=== PATIENT | male | born 1960 | race Two or more races ===

== ENCOUNTER 2024-02-12 16:10 | Emergency (ER) | payer MEDICARE, SELFPAY ==
[2024-02-12 16:14] VITALS: BP 122/87
[2024-02-12 16:39] VITALS: BP 116/82
--- NOTE | 2024-02-12 16:49 | ED.GENMED ---
History of Present Illness
General
Chief Complaint: Heart Rate Problem
Source: patient
Exam Limitations: none
Time Seen by Provider: 02/12/24 16:48
Travel History
Have you had any contact with someone who has COVID-19?: No
Do you have any symptoms of coronavirus? Fever > 100 degrees, chills, cough, shortness of breath, sore throat, loss of taste or smell, muscle aches, or headache?: No
History of Present Illness
History of Present Illness:
63-year-old male woke 36 hours ago with some fluttering shortness of breath. Intermittent since then. Currently does not feel it. Just feels mildly fatigued. No chest pain no unusual leg pain no recent long trip. Patient has a history of atrial
fibrillation. History of valve replacement. He states he was recommended to be on blood thinners by his software release manager but patient has held off on this in the past. Follow [facility]. Paper Steamer had recommended a watchman at some
point.
Past History
Past History
ED Past Medical History: Arrthythmia and Valvular disease
ED Past Surgical History: Other (Fasciotomy)
Review of Systems
Review of Systems
All Other Systems: Not applicable
Cardiac: Denies chest pain or syncope
Phy Exam
Physical Exam
Physical Exam:
GENERAL: Alert and oriented in no apparent distress
EYE: Orbits normal.
NECK: Supple. No thyroid palpable
ENT: Pharynx without erythema
CARDIAC: Regular rhythm. Tachycardic. No obvious murmur
LUNGS: Clear breath sounds,normal
ABDOMEN: Soft, without focal tenderness or distention
NEUROLOGICAL: Alert and oriented , grossly non-focal
SKIN: Warm and dry, no rash or lesion, no discoloration, skin intact.
MUSCULOSKELETAL: Chronic edema and stockings of the lower extremities
PSYCH: Normal and appropriate interaction.
Scores
[id number] Score for Afib Stroke Risk
Age in Years (65=0, 65-74=1, >/=75=2): 65-74
Sex (Female=+1): Male
Congestive Heart Failure History (Yes=+1): No
Hypertension History (Yes=+1): No
Stroke/TIA/Thromboembolism History (Yes=+2): No
Vascular Disease History (Yes=+1): No
Diabetes Mellitus (Yes=+1): No
Score: 1
Anticoagulation Recommendations: Consider anticoagulation (as validated in nonvalvular fib)
Course
Orders/Labs/Results
Orders:
Orders
02/12/24 16:21
Electrocardiogram (*1) Urgent
Reason for Study: Palpitations
EKG- Treatment ONCE
02/12/24 16:44
Cardiac Monitoring- Treatment ONCE
IV Insert/Care/Rem.- Treatment PRN
02/12/24 16:47
Complete Blood Count/With Diff Urgent
Comprehensive Metabolic Panel Urgent
Troponin I Urgent
Abnormal Lab Results
02/12/24
16:47
RBC 3.76 L 10^6/uL
(4.70-6.10)
Hgb 11.9 L g/dL
(13.0-18.0)
Hct 37.3 L %
(39.0-52.0)
MCV 99.2 H fL
(80.0-94.0)
MCH 31.6 H pg
(27.0-31.0)
MCHC 31.9 L g/dL
(33.0-37.0)
Absolute Lymphs (auto) 0.8 L 10^3/uL
(1.2-3.4)
Neutrophils % 80.4 H %
(42.2-75.2)
Lymphocytes % 10.9 L %
(20.5-51.1)
Glucose 105 H mg/dl
(70-99)
Total Bilirubin 1.5 H mg/dl
(0.2-1.3)
Total Protein 6.2 L g/dl
(6.3-8.2)
02/12/24 16:47
02/12/24 16:47
Vital Signs
Initial and Last Documented VS:
Initial Vital Signs
Temp Pulse Resp BP Pulse Ox
99.3 F 124 16 122/87 96
02/12/24 16:14 02/12/24 16:14 02/12/24 16:14 02/12/24 16:14 02/12/24 16:14
Last Documented Vital Signs
Temp Pulse Resp BP Pulse Ox
99.3 F 121 31 111/82 95
02/12/24 16:14 02/12/24 18:00 02/12/24 18:00 02/12/24 18:00 02/12/24 18:00
MDM/Problems Addressed
Differential Diagnosis Includes:
Patient has 2 issues management meant of his atrial flutter and management of his stroke risk. As for his atrial flutter he currently does not feel any symptoms which makes me at least somewhat question when these episodes have started. I am not
comfortable with cardioversion given his lack of anticoagulation and uncertain symptoms. He will be rate controlled more and carefully and close follow-up with cardiology.
As for risk of stroke patient's [id number] is 1 however with his recurrent episodes and a probable need for cardioversion in the near future it would make most sense to have him on an anticoagulant. Patient does have history of some nosebleeds
and 1 history of GI bleed in the past. He has no current bleeding issues. Apparently his software release manager had wanted him on thinners he did not want them and had recommended a Watchman procedure. Patient does not pursue that at this time. Discussed
with our software release manager who is in agreement with rate control anticoagulation and close follow-up. Patient is aware of the risk of anticoagulation
*Pulse Oximetry
Patient hypoxic: no
*EKG
Interpreted by ED Provider?: Yes
Interpretation: abnormal
Comparison EKG: no comparison EKG present
Heart Rate: 123
Rate: tachycardiac
Rhythm: atrial flutter
[place]: left axis deviation
Interval: normal interval
QRS Pattern: normal QRS
Ischemia: non-specific ST changes
*Critical Care Note
Total Time (30-74mins, 75-104mins- exclusive of procedures): Not Applicable
Update Note
Update Note:
Patient did not want us to give the meds here .discussed with cardiology. Will up the beta-augustina mildly. Patient was given a coupon for the Eliquis he does not want to start it here. And will follow-up. No respiratory distress no CHF. Stable
blood pressure.
ED Attending Note
-
Portions of this chart may have been created with voice recognition software.� Occasional wrong word or��sound alike� substitutions may have occurred due to the inherent limitations of voice recognition software.
Discharge Plan
Departure
Patient Disposition: Home (Routine Discharge)
Date of Disposition: 02/12/24
Time of Disposition: 18:00
Patient with high blood pressure during this ER visit?: Yes
Discharge Problem:
Atrial flutter
Instructions: Atrial Flutter (DC), Managing increased bleeding risk, Chest Pain CBC Follow Up, BLOOD PRESSURE
Prescriptions:
New
Eliquis 5 mg tablet
5 mg PO BID Qty: 60 0RF
Referrals:
Carmelo Shepherd MD [Family Provider] - Follow up in 2-3 days
Arvin Raya MD [Active] -
Activity Restrictions/Additional Instructions:
Take an extra half tablet of your metoprolol daily.
We recommend starting the Eliquis. The risk benefit was explained
The cardiology group should call you tomorrow for close follow-up
Interventions
Interventions:
*Risk Screen - Suicide Last Done: 02/12/24 17:46
*General Assessment Last Done: 02/12/24 18:14
*Neglect/Abuse Screening Last Done: 02/12/24 17:46
ED- Fall Risk Assessment Last Done: 02/12/24 18:14
*ED COVID-19 Vaccine History Last Done: 02/12/24 18:14
*Nursing Disposition Last Done: 02/12/24 18:14
ED- Cardiac Assessment Last Done: 02/12/24 17:45
ED- Pulmonary Assessment Last Done: 02/12/24 17:45
Discharge Date and Time
Discharge Date/Time: 02/12/24 18:14
Print Language: HEBREW
[2024-02-12 16:54] LABS: % Basophils 0.1 % (0-2); % Eosinophils 1.9 % (0-6); % Immature Granulocytes 0.3 % (0-0.5); % Lymphocytes 10.9 % (20.5-51.1); % Monocytes 6.4 % (1.7-9.3); % Neutrophils 80.4 % (42.2-75.2); Absolute Eosinophils 0.1 10^3/uL (0-0.7); Absolute Lymphocytes 0.8 10^3/uL (1.2-3.4); Absolute Monocytes 0.4 10^3/uL (0.1-0.6); Absolute Neutrophils 5.6 10^3/uL (1.4-6.5); Hematocrit 37.3 % (39.0-52.0); Hemoglobin 11.9 g/dL (13.0-18.0); Mean Corp Hgb Conc. 31.9 g/dL (33.0-37.0); Mean Corpuscular Hgb 31.6 pg (27.0-31.0); Mean Corpuscular Volume 99.2 fL (80.0-94.0); Mean Platelet Volume 9.2 fL (7.4-10.4); Nucleated Red Blood Cells % 0 % (-); Platelet Count 147 10^3/uL (130-400); Red Blood Cell Count 3.76 10^6/uL (4.70-6.10); Red Cell Dist. Width 13.3 % (11.5-14.5); White Blood Cell Count 6.9 10^3/uL (4.8-10.8)
[2024-02-12 17:00] VITALS: BP 122/84
[2024-02-12 17:14] LABS: ALT (SGPT) 17 U/L (0-50); AST (SGOT) 23 U/L (17-59); Albumin 4.2 g/dl (3.5-5.0); Alkaline Phosphatase 60 U/L (38-126); Blood Urea Nitrogen 20 mg/dl (9-20); Calcium 9.5 mg/dl (8.4-10.2); Carbon Dioxide 27 mmol/L (22-30); Chloride 107 mmol/L (98-107); Glucose 105 mg/dl (70-99); Potassium 3.9 mmol/L (3.5-5.1); Sodium 143 mmol/L (135-145); Total Bilirubin 1.5 mg/dl (0.2-1.3); Total Protein 6.2 g/dl (6.3-8.2); eGFR > 60.00
[2024-02-12 17:20] LABS: Troponin I < 0.012 ng/ml
[2024-02-12 18:00] VITALS: BP 111/82
== END 2024-02-12 18:14 | disposition home or self-care (01) ==
LOC: EMR 16:10
PROVIDERS: Student in an Organized Health Care Education/Training Program; EMERGENCY PHYSICIAN Emergency Medicine; FAMILY PHYSICIAN Internal Medicine
DX: I48.92 Unspecified atrial flutter (principal); R06.02 Shortness of breath; R53.83 Other fatigue; R03.0 Elevated blood-pressure reading, without diagnosis of hypertension; I48.91 Unspecified atrial fibrillation; I38 Endocarditis, valve unspecified; Z95.2 Presence of prosthetic heart valve; Z91.040 Latex allergy status; Z91.048 Other nonmedicinal substance allergy status
CPT/HCPCS: 99283; 80053; 84484; 85025; 93005

== ENCOUNTER → 2024-03-02 07:18 | Day surgery (SDC) | payer MEDICARE, SELFPAY ==
[2024-03-02 07:40] VITALS: BMI 29.0
--- NOTE | 2024-03-02 18:23 | ITS.CL.CARDI ---
Construction Assistant - Cardioversion
Cardioversion
Procedure Report:
Date of Procedure: 03/02/24
Procedure: INNA, evaluation for Watchman and JOSE. DC Cardioversion
Indication: Symptomatic atrial flutter
Performing Physician: Liliane Chaves DO [facility]
INNA 03/02/24:
Normal left ventricular chamber size with moderately reduced left ventricular systolic function.
Left ventricular ejection fraction visually estimated 35%
Normal right ventricular size with mildly reduced right ventricular systolic function
Severely dilated left atrium
Moderately dilated right atrium
Left atrial appendage windsock morphology. No spontaneous echo contrast seen in the left atrial appendage. No left atrial appendage thrombus. Peak velocities within the left atrial appendage are reduced. JOSE diameters: 0: Ostial diameter 3.13 cm,
depth 5.4 cm. 45: Ostial diameter 2.9 cm, depth 4.5 cm. 90: Ostial diameter 2 cm, depth 4.1 cm. 135: Ostial diameter 2.6 cm, depth 5.6 cm
There is a bioprosthetic valve present in the mitral position. Valve appears well-seated. Averaged mean transmitral gradient 5mmHg. Trace central mitral regurgitation. No paravalvular regurgitation.
[place], sclerotic aortic valve with trace, central aortic regurgitation
There is Annuloplasty ring present in the tricuspid position. No tricuspid stenosis. Mean gradient 2 mmHg. Mild tricuspid regurgitation.
Estimated pulmonary artery pressure of 23-26 mmHg assuming a right atrial pressure of 5 to 8 mmHg
Trace pulmonic regurgitation.
Mildly dilated aortic root and proximal ascending aorta: Sinus of Valsalva 3.45 cm, sinotubular junction 3.8 cm. Proximal ascending aorta 4.38 cm. Descending aorta 3 cm. Mild plaque was present in the descending aorta. No aortic dissection.
History of PFO closure; interatrial septum appears intact by color-flow Doppler.
Okay to proceed with planned cardioversion.
Anticoagulation: Eliquis
Technique: The patient was brought to the holding area. Signed informed consent was obtained. A time out was called and performed. The patient was anesthetized by the anesthesia service. Transesophageal echocardiogram performed without difficulty.
No immediate complications. No left atrial appendage thrombus. R2 pads were placed anteriorly and posteriorly. A 150J J synchronized biphasic shock restored normal sinus rhythm without significant bradycardia. There were no complications.
Post procedure EKG: Sinus rhythm with first-degree AV block and occasional PVCs. Left axis deviation. Possible lateral infarct. T wave abnormality, consider anterior ischemia.
Conclusion: Uncomplicated cardioversion from atrial flutter to sinus rhythm. Family and referring physician updated following procedure
Recommendation: Routine post cardioversion care. Continue watermaster anticoagulation. Follow-up planned with Dr. Wallace, [facility] cardiology
== END ==
LOC: CATH 07:18
PROVIDERS: ATTENDING PHYSICIAN Internal Medicine Cardiovascular Disease; FAMILY PHYSICIAN Internal Medicine; OTHER PHYSICIAN Internal Medicine Cardiovascular Disease
DX: I48.92 Unspecified atrial flutter (principal); I08.3 Combined rheumatic disorders of mitral, aortic and tricuspid valves; R06.02 Shortness of breath; I42.8 Other cardiomyopathies; Z79.01 Long term (current) use of anticoagulants
CPT/HCPCS: 93312; 93320; 93325; 92960; 93005

== ENCOUNTER → 2024-05-02 11:11 | Outpatient (REF) | payer MEDICARE, SELFPAY | LOC: HWRAD 11:11 | PROVIDERS: ATTENDING PHYSICIAN Internal Medicine Gastroenterology; FAMILY PHYSICIAN Internal Medicine; OTHER PHYSICIAN Internal Medicine Cardiovascular Disease; OTHER PHYSICIAN Internal Medicine Hematology & Oncology; REFERRING PHYSICIAN Internal Medicine Cardiovascular Disease | DX: R10.33 Periumbilical pain (principal) | CPT/HCPCS: 74177; Q9967 ==

== ENCOUNTER 2024-05-16 11:06 | Emergency (ER) | payer MEDICARE, SELFPAY ==
[2024-05-16 11:12] VITALS: BP 106/71
--- NOTE | 2024-05-16 13:16 | ED.GENMED ---
History of Present Illness
<Kathryn Lu PA-C - Last Filed: 05/17/24 16:53>
General
Chief Complaint: Swelling
Source: patient
Exam Limitations: none
Time Seen by Provider: 05/16/24 12:11
Nursing documentation reviewed up to this point in time: agreed with
History of Present Illness
History of Present Illness:
pt is a 64 y/o M afib on eliquis
due to have ablation in the next few weeks
h/o varicose veins, has had a few treatments with sclerotherapy most recent march
and previous saphenous vein procedure as well as femoral stentingin when in [facility] he past
here with pain in the LEFT anterior ankle/foot region the past 5 nights
mostly pain at night, better during the day and better with walking
has chroinc skin discoloration in the loewr legs secondary to PVD
he has no cold foot, food drop, paresthesias
he has hd some cracking of the skin of the foot that he has put aquaphor on, and in between his toes
no fever/chills, cp, sob
he always is tachycardic and is due to have ablation soon
in anticoagulated
[facility] has been having his vein treatments for varicose veins and they recommended that he come to the ER.
pt has no cp, sob
says resting heart rate is usually 120s.
Past History
<Kathryn Lu PA-C - Last Filed: 05/17/24 16:53>
Past History
ED Past Medical History: Arrthythmia and Valvular disease
ED Past Surgical History: Other (Fasciotomy)
Review of Systems
<Kathryn Lu PA-C - Last Filed: 05/17/24 16:53>
Review of Systems
Allergies reviewed?: Yes
All Other Systems: Not applicable
Phy Exam
<Kathryn Lu PA-C - Last Filed: 05/17/24 16:53>
Physical Exam
Physical Exam:
GENERAL: Alert , in no apparent distress
EYE: pupils equal and reactive
NECK: Supple
ENT: o/p clr, mmm.
CARDIAC: tachycardic, palpable pulses dp
LUNGS: Clear breath sounds bilaterally, no acute respiratory distress, no wheezes/rales/rhonchi
ABDOMEN: Soft, without focal tenderness, no r/g, no cvat, normal bowel sounds
NEUROLOGICAL: Alert and oriented, no focal neuro deficits
SKIN: B/L LE hyperpigmentation
some cracked moistened skin to the top of th eleft ofot with whitish moisture changes in webspaces of toes c/w tinea pedis
MUSCULOSKELETAL: no edema
b/l PVD skin changes
many varicosities, torturous to b/l LE
ankle nontender, foot mild tendenress dorsum of the foot
perfused,
palpable pulses
PSYCH: Normal and appropriate interaction.
Scores
<Kathryn Lu PA-C - Last Filed: 05/17/24 16:53>
Heart Failure Risk
Heart Failure Risk Score: Not Applicable
Course
<Kathryn Lu PA-C - Last Filed: 05/17/24 16:53>
Orders/Labs/Results
Orders:
Orders
05/16/24 12:08
US Periph Venous LOWER Ext LT Urgent
Comment:
Reason For Exam: swelling
05/16/24 14:27
Vascular Surgery Consult Urgent
Consulting Provider: Kiran Akins
Was physician already notified: Yes
05/16/24 14:31
Lower Ext Arterial & TORITO US [US Periph Art LOWER Ext w TORITO] Urgent
Comment: +tbi too please
Reason For Exam: worsening LLE pain
Vital Signs
Initial and Last Documented VS:
Initial Vital Signs
Temp Pulse Resp BP Pulse Ox
97.7 F 117 16 106/71 96
05/16/24 11:12 05/16/24 11:12 05/16/24 11:12 05/16/24 11:12 05/16/24 11:12
Last Documented Vital Signs
Temp Pulse Resp BP Pulse Ox
97.7 F 118 22 103/70 96
05/16/24 11:12 05/16/24 14:51 05/16/24 14:51 05/16/24 14:51 05/16/24 14:51
<Arvin Ratliff MD - Last Filed: 05/16/24 22:26>
Orders/Labs/Results
Orders:
Orders
05/16/24 12:08
US Periph Venous LOWER Ext LT Urgent
Comment:
Reason For Exam: swelling
05/16/24 14:27
Vascular Surgery Consult Urgent
Consulting Provider: Kiran Akins
Was physician already notified: Yes
05/16/24 14:31
Lower Ext Arterial & TORITO US [US Periph Art LOWER Ext w TORITO] Urgent
Comment: +tbi too please
Reason For Exam: worsening LLE pain
Vital Signs
Initial and Last Documented VS:
Initial Vital Signs
Temp Pulse Resp BP Pulse Ox
97.7 F 117 16 106/71 96
05/16/24 11:12 05/16/24 11:12 05/16/24 11:12 05/16/24 11:12 05/16/24 11:12
Last Documented Vital Signs
Temp Pulse Resp BP Pulse Ox
97.7 F 118 22 103/70 96
05/16/24 11:12 05/16/24 14:51 05/16/24 14:51 05/16/24 14:51 05/16/24 14:51
<Kathryn Lu PA-C - Last Filed: 05/17/24 16:53>
MDM/Problems Addressed
Differential Diagnosis Includes:
PVD, varicose veins, claudication, less likely limb ischemia, celluiltlis
MDM/Problems Addressed:
64 y/o M
vasculpoath
varicose vein therapy
has had pain at night x 5 nights in anterior ankle and dorsum of foot
the skin dislocration is chronic
perfused, normal DP/pt pulses on exam
does have some moist cracked skin of toes and foot c/w tinea pedis vs. trench foot
no celluiltis appreciated
did not feel that labs owuld be helpful
dvt study neg
d/w ed attending who recommended seen by vascular who felt that if TORITO normal, ok to go home and f/u outpatient
torito normal
d/c home
clotrimzaole cream
<Kathryn Lu PA-C - Last Filed: 05/17/24 16:53>
*Critical Care Note
Total Time (30-74mins, 75-104mins- exclusive of procedures): Not Applicable
ED Attending Note
<Kathryn Lu PA-C - Last Filed: 05/17/24 16:53>
-
Portions of this chart may have been created with voice recognition software.� Occasional wrong word or��sound alike� substitutions may have occurred due to the inherent limitations of voice recognition software.
<Arvin Ratliff MD - Last Filed: 05/16/24 22:26>
ED Attending Note
Patient seen and examined by attending physician: Yes
ED Attending Note:
I have seen and evaluated the patient with a [id number] encounter. I have spoken to the advance practicer provider and involved in the medical history, the physical exam, medical decision making.
Evaluation and management service: agree unless noted differently below.
Results interpretation: agree unless noted differently below.
Focused HPI: 64-year-old male with history as documented notable for PVD status post vascular stenting, atrial fibrillation on Eliquis who presents for evaluation of left foot pain. Patient reports symptoms have been waxing and waning over the past
week�he reports pain is primarily on the dorsum of the left foot and ankle. Seems to be worse at night. He denies any falls or trauma. He denies any unusual swelling. He has been receiving treatments for varicose veins as an outpatient. Given
duration of symptoms and vascular disease sent to the ER for vascular studies.
Physical exam: Awake alert not in distress. Tachycardic which she says is a chronic issue, no other vital sign abnormalities. He has bilateral lower extremity edema. He has significant chronic venous stasis changes in the lower extremities
bilaterally. He has palpable varicose veins bilaterally somewhat worse on the left. He does have palpable pulses femoral, DP, PT, popliteal bilateral lower extremities. His distal extremities are warm and well-perfused. He has full range of
motion of the ankle, knee, hips bilaterally.
Medical Decision Makin-year-old male with history of vascular disease presents with intermittent pain on the dorsum of the left foot. Sent for venous and arterial ultrasounds which showed no DVT, normal waveforms on arterial study. Discussed
with vascular surgery suspect likely pains related to venous stasis, discharged with outpatient follow-up.
Discharge Plan
Departure
Patient Disposition: Home (Routine Discharge)
Date of Disposition: 05/16/24
Time of Disposition: 16:00
Patient with high blood pressure during this ER visit?: No
Condition: Fair
Covid-19: Not Applicable
Discharge Problem:
Leg pain, Peripheral vascular disease, Tinea pedis
Instructions: Fungal Skin Rash (DC), Peripheral Vascular Disease
Prescriptions:
New
clotrimazole 1 % cream
1 applic topical BID 14 Days Qty: 30 0RF
No Action
Eliquis 5 mg tablet
5 mg PO BID Qty: 60 0RF
metoprolol succinate 25 mg Tablet Extended Release 24 Hr
25 mg PO BID
Entresto 24-26 mg Tablet
1 tab PO BID
cyanocobalamin (vitamin B-12) [Vitamin B-12] 1,000 mcg Tablet
1,500 mcg PO DAILY
zinc Tablet,Chewable
PO DAILY
magnesium Tablet
PO
cholecalciferol (vitamin D3) [Vitamin D3] 50 mcg (2,000 unit) Tablet
50 mcg PO DAILY
Referrals:
Carmelo Shepherd MD [Family Provider] -
Kiran Akins MD [Active] - Follow up in 5-7 days
Activity Restrictions/Additional Instructions:
YOU NEED TO FOLLOW UP WITH THE VASCULAR SURGEON FOR YOUR SYMPTOMS
YOU HAD NO SIGNS OF LIMB EMERGENCY TODAY
USE THE CREAM ON YOUR FOOT AND BETWEEN YOUR TOES TO HELP CLEAR UP THE FUNGAL INFECTION
MAKE SURE IT IS DRY BETWEEN YOUR TOES
TAKE TYLENOL FOR PAIN NEEDED
RETURN FOR COLD FOOT, SEVERE PAIN, WORSENING REDNESS, FEVER, OR ANY CONCERNS.
Interventions
Interventions:
*ED COVID-19 Vaccine History Last Done: 05/16/24 15:02
*Nursing Disposition Last Done: 05/16/24 16:44
ED-Skin Assessment Last Done: 05/16/24 15:03
Discharge Date and Time
Discharge Date/Time: 05/16/24 16:45
Print Language: IRAQI
[2024-05-16 14:51] VITALS: BP 103/70
== END 2024-05-16 16:45 | disposition home or self-care (01) ==
LOC: EMR 11:06
PROVIDERS: CONSULT PHYSICIAN Surgery Vascular Surgery; EMERGENCY PHYSICIAN Emergency Medicine; FAMILY PHYSICIAN Internal Medicine
DX: M79.605 Pain in left leg (principal); I73.9 Peripheral vascular disease, unspecified; B35.3 Tinea pedis; I38 Endocarditis, valve unspecified; I48.91 Unspecified atrial fibrillation; I87.2 Venous insufficiency (chronic) (peripheral); Z79.01 Long term (current) use of anticoagulants
CPT/HCPCS: 99284; 93922; 93925; 93971

== ENCOUNTER 2024-07-05 08:38 | Day surgery (SDC) | payer MEDICARE, SELFPAY ==
--- NOTE | 2024-05-16 15:59 | CON.VAS ---
Consultation
Consultation Request
Performing Provider: David CLIFTON
Reason for Consultation: LLE pain
Medical History
-
Chief Complaint: Left lower extremity pain
History of Present Illness:
60-year-old male with past medical history of DVT, venous ablations, sclerotherapy, A-fib presents to the ER today for increasing left lower extremity pain. Vascular consult for PAD eval.
Patient seen at bedside in the ER this afternoon. Patient admits to pain at the ankle and to the top of the foot where he has bulging varicosities. Patient admits recently he has had more pain in the feet at night which worsens when he dangles his
feet over the bed. He has palpable femoral, popliteal, and DP pulses. PT pulses were difficult to palpate due to hardened skin and varicosities. Bilateral feet are warm. No wounds to the toes or heels. Patient states he wears compression
stockings at all times due to his extensive history of swelling and varicose veins. Patient does not have calf cramping with walking, he admits to ankle discomfort at the bulging varicosity when ambulating. Patient denies history of PAD, CAD, DM,
balloons or stents in the arteries.
Past Medical History
Past Medical History: Other (DVTs, IVC filter, iliac vein stent, lower extremity edema, venous reflux)
Past Surgical History: Other (Stab lobectomy, vein ablations, IVC filter)
Social History
Alcohol: None
Drug: None
Family History
Family History: Reviewed & Not Pertinent
Allergies / Home Medications
Allergy/AdvReac Type Severity Reaction Status Date / Time
latex Allergy Unknown Unknown Verified 05/16/24 11:16
cats Allergy Unknown Uncoded 05/16/24 11:16
�Medication �Instructions �Recorded �Confirmed �Type
apixaban 5 mg tablet (Eliquis) 5 mg PO BID #60 tabs 02/12/24 03/02/24 Rx
cholecalciferol (vitamin D3) 50 50 mcg PO DAILY 03/02/24 03/02/24 History
mcg (2,000 unit) tablet (Vitamin
D3)
cyanocobalamin (vitamin B-12) 1,500 mcg PO DAILY 03/02/24 03/02/24 History
1,000 mcg tablet (Vitamin B-12)
magnesium tab PO 03/02/24 History
metoprolol succinate 25 mg 25 mg PO BID 03/02/24 03/02/24 History
tablet,extended release 24 hr
sacubitril 24 mg-valsartan 26 mg 1 tab PO BID 03/02/24 03/02/24 History
tablet (Entresto)
zinc tab PO DAILY 03/02/24 History
clotrimazole 1 % topical cream 1 applic topical BID 2 weeks #30 05/16/24 Rx
grams
Review of Systems
-
History Source: Patient
All other systems: Negative unless noted
Constitutional: Reports No Symptoms
EENT: Reports No Symptoms
Respiratory: Reports No Symptoms
Cardiac: Reports No Symptoms
Vascular: Denies Leg Pain / Claudication
Abdomen/GI: Reports No Symptoms
: Reports No Symptoms
Musculoskeletal: Reports Edema
Skin: Reports Other
Neurological: Reports No Symptoms
Physical Exam
Physical Exam
General: No Apparent Distress
HEENT: Normocephalic and Atraumatic
Respiratory: Non Labored Respirations
Cardiac: Negative JVD
GI: Soft and Non Tender
Musculoskeletal: No Clubbing, No Cyanosis and Edema (Bilateral lower extremities)
Skin: Warm, Dry and Other (Brownish discoloration, dilated varicose veins)
Neuro: Awake, Alert and Oriented
Psych: Calm
Pulses: Bilateral Femoral: +2, Bilateral Popliteal: +2, Bilateral Dorsalis Pedis: +1 and Bilateral Posterior Tibial: Doppler (Difficult to palpate with hardened skin)
Assessment / Plan
-
64-year-old male with chronic venous insufficiency
Here today with increasing left lower extremity pain
ABIs and TBIs normal
Plan: Recommend wound care, follow-up with vein center, all appears to be venous in nature
Data Reviewed
-
Ultrasound: Discussed with Physician
Labs: Labs Reviewed by me
[2024-06-25 11:13] VITALS: BMI 30.2
[2024-07-05] VITALS (32 sets, daily range): BP systolic 86–114; BP diastolic 52–98; BMI 31.3
--- NOTE | 2024-07-05 14:38 | ITS.CL.ABL ---
Airline Station Agent - Ablation
Ablation
Procedure Report:
AFIB ablation:
Mr. Mckenna is a very pleasant 64 yr old gentleman with symptomatic persistent AF failed DCCV rate controlled with digoxin and Metoprolol with CHF, and hx of mitral valve repair in 1997, tricuspid valve repair, PFO closure and maze procedure in 2020
with moderately reduced LV systolic functions, frequent atrial tachycardia and atrial flutters with history of GI bleeds and is admitted with acute on chronic heart failure likely due to atrial fibrillation with hx of ASD s/o surgical repair with
patch presented today to the EP lab for atrial fibrillation ablation.
Date of the Procedure:
07/05/2024
Indications:
Persistent atrial fibrillation / atrial flutter
Pre-Operative Diagnosis:
Persistent atrial fibrillation / atrial flutter
Post-Operative Diagnosis:
Persistent atrial fibrillation / atrial flutter
Procedure Performed:
Atrial fibrillation ablation with Pulsed-Field approach for pulmonary vein isolation
Posterior wall isolation
Roof dependent atrial flutter ablation.
Performing Physician:
Divine Jackson MD
Assistants:
EP staff
Anesthesia:
See anesthesia records
Detailed Description of the Procedure:
Written informed consent was obtained from the patient after a full explanation of the risks and benefits of the procedure including the risks of sedation and anesthesia.
The patient was brought to the electrophysiology laboratory in stable condition in fasting state. Continuous electrocardiographic and hemodynamic monitoring was initiated.
The initial rhythm was atrial fibrillation.
The procedure site was meticulously prepared with surgical scrub and allowed to dry with no pooling. Sterile draping was applied to cover the procedure site. The image intensifier was draped with sterile bag and positioned over the patient. After
infusion of local anesthetic, vascular access was obtained under ultrasound guidance and sheaths were placed over guide wire as detailed below.
Sheath and Catheter Placement:
In the right femoral vein, an 8-Peruvian sheath was placed under ultrasound guidance for use during the ablation procedure and a mapping catheter was intermittently placed in the high right atrium, right ventricle, left atrium. In the right femoral
vein, another 9-Fr sheath was placed for use during intra-cardiac echo procedure. Another 7Fr sheath was placed in the left femoral vein for CS catheter placement.
The sheaths were upgraded as needed during the case. Intra-cardiac catheters were positioned using direct fluoroscopic guidance. Decapolar catheter advanced into CS position. ICE catheter was placed in RA. The following catheters / sheaths were
placed
Sheaths:
��������� 15Fr steerable sheath (FlexCath Cross�, Browntape) in right femoral vein in right femoral vein
��������� 9Fr in right femoral vein
��������� 7Fr in right femoral vein
Catheters:
��������� Pentaray mapping catheter � at locations of RA, LA
��������� PulseSelect� PFA catheter
��������� ICE catheter -AcuNav - at locations of RA, SVC, and RV.
��������� Decapolar Bard catheter in RA and CS
Intracardiac ECHO:
An 8-Peruvian AcuNav intracardiac ECHO (ICE) probe was advanced through the 9-Peruvian sheath in the right femoral vein into the right atrium under fluoroscopic and ICE ultrasound image guidance and a baseline ECHO study was performed. The left atrial
size was dilated. There was moderate tricuspid regurgitation. The aortic valve was grossly normal. There was normal left ventricular systolic functions. There is small pericardial effusion. All the four veins were identified and has flow identified.
During the procedure, ICE was used for monitoring of complications, guidance of trans-septal puncture, monitor the catheter position and tracking ablation lesions. No change in the pericardial space noted throughout the procedure.
Trans-septal Puncture:
Heparin was initiated and infused to maintain appropriate ACT. A J-tipped guidewire was advanced through the 8-Peruvian sheath in the right femoral vein into the superior vena cava under fluoroscopic and ICE guidance. The 8-Peruvian sheath was exchanged
for a FlexCath Cross sheath which was advanced into the superior vena cava. An Flazio transseptal access system was utilized to perform the trans-septal puncture. The apparatus was withdrawn until it was in contact with the fossa ovalis. The
position was adjusted based on fluoroscopy and ultrasound images from ICE. Under fluoroscopic, hemodynamic and ICE ultrasound guidance, left atrium was cannulated by advancing the needle. Once atrial septum was cannulated, the needle was pulled back
and a guide wire was advanced through the needle into the left atrium. The guide wire was advanced into the left superior pulmonary vein. Both the sheath and the dilator was advanced into the left atrium. The dilator with the needle was withdrawn.
Blood was aspirated from the FlexCath cross sheath and arterial blood confirmed. The sheath was flushed. Saline injection noted into the left atrium on ICE. The mapping catheter was advanced in the Agilis sheath into the left pulmonary vein. Left
atrial pressure was measured.
3D Electroanatomic Mapping:
Using the Pentaray mapping catheter advanced through sheath into the left atrium, an electroanatomic map (EAM) of the left atrium was created using CARTO mapping system. The map was used for localization of catheter position and tacking of ablation
lesions. The EAM of the left atrium showed 4 pulmonary veins with two left sided and two right sided veins electrically connected to the body the LA. There was extensive areas of low voltage noted in the left atrium with minimal electrical activity
in the posterior wall in atrial fibrillation.
The LA was severely dilated in size.
Following the EAM, preparation were made for ablation.
Ablation:
Ablation # 1: Pulmonary vein Isolation:
Glycopyrrolate 0.2 mg was given prior to the placement of ablation. Using Mashups� pulsed field ablation system, pulmonary vein isolation was achieved. First the ablation catheter was placed in the LIPV and ostial ablation lesions were performed
in a counter clock steele approach all around the PV ostium circumferentially. Then the catheter was placed on the antral location and multiple ablation lesions were placed circumferentially on the antrum of the vein.
In the similar fashion, the LSPV were isolated.
Then the catheter was moved to right sided veins. The ostial and antral ablations were placed as noted above to the RSPV and RIPV.
Ablation # 2: Posterior wall isolation:
Using the pulsed field ablation catheter, the catheter was placed on the posterior wall and moved around the posterior wall to have adequate contact and ablations were placed isolating the posterior wall.
Cardioversion:
Once the PV isolation was achieved, decision was made to proceed with cardioversion. A 200 J biphasic shock was applied on the cecile posterior Zoll patches and sinus rhythm was achieved. No significant pause noted.
Electroanatomic mapping of LA
Once the sinus rhythm achieved, the LA was mapped with Pentaray in detail.
Patient went into atrial flutter and was entrained and mapped. The arrhythmia was mainly coming from LA and mapping showed it is roof dependent atrial flutter.
Ablation # 3: Atrial flutter ablation:
The atrial flutter was mapped and was 380 ms cycle length. It was roof dependent and critical isthmus of the flutter was noted to be anterior to the left superior pulmonary vein.
Using the pulsed select ablation catheter, the roof of the left atrium was ablated. The tachycardia terminated into normal sinus rhythm.
Further ablation lesions were placed on the posterior wall at the remaining channels there was connecting. No sign of any electrical activity left on the posterior wall at the end of the case.
Post ablation Electroanatomic mapping:
Once ablation was completed, the EAM of the LA was done again in sinus rhythm with excellent demarcation of LA myocardium and isolated antral tissue.
EPS and Confirmation of the PVI and bidirectional block:
Following achievement of entrance block at the pulmonary veins, pacing from the pentaray catheter in each of the four veins at 10 milliamps for 2 milliseconds showed entrance and exit block. All PVI were rechecked at the end of the case and remained
isolated with dissociated and local capture with pacing. Entrance and exit block were demonstrated in all veins.
Procedure End
ICE study was done again that showed no epicardial accumulation. No complications noted.
Following the completion of the EP study, catheters were removed. Protamine 40 mg was given at the end of the procedure and ACT was checked repeatedly. The sheaths were removed and hemostasis achieved with manual compression after acceptable ACT is
achieved.
Left atrial Pressure:
Pre-Procedure: Mean LA pressure was 19mmHg
Post-Procedure: Mean LA pressure was 21mmHg
Post-Procedure: Mean LR pressure was 13mmHg
Fluoro time:
8.7 min / DAP 10.5
Estimated Blood loss:
<10 cc
Specimens Removed:
None.
Implants / Devices:
None
Urine output:
None
Packs / Drains/ Tubes:
None
Instrument / Sponge Count Correct:
Yes
Complications of the Procedure:
None
Condition of Patient at Time of Transfer:
Hemodynamically stable with no neurological or vascular compromise.
Summary:
Successful atrial fibrillation ablation with Pulsed Field approach for pulmonary vein isolation, posterior wall isolation and atypical roof dependent flutter ablation
Figures from the Procedure:
Figure 1: The electroanatomic mapping (EAM) of the left atrium with bipolar voltage (purple indicates normal electrical activity with dukes as no myocardial muscle electric activity indicating a line of block or scar.
[2024-07-05] MEDS: LASIX 40 MG IV (15:04)
--- NOTE | 2024-07-05 15:05 | PTCARENOTE ---
Pt's blood pressure is 94/56 post PVI. Pt's pre blood pressure was 107/89. Pt with rales all the way up bilaterally post PVI. Pulse ox 95% on 2L NC. Pt ordered lasix 40mg IVP. Deneen Hollingsworth TYPING CHECKER made aware of pt's current blood pressure and lung status.
Deneen Hollingsworth NP ordered ok to given lasix IV with BP of 94/56. Will administer medication and continue to monitor.
--- NOTE | 2024-07-05 15:14 | PTCARENOTE ---
While pt is coughing, he is bringing up some bloody sputum and suctioning with yankeur. Deneen SKI TOP TRIMMER made aware and at bedside to assess pt. Pt states he only feels tired but no other complaints at this time. VSS. Lasix IVP given slowly. Will conitnue to
monitor.
--- NOTE | 2024-07-05 16:05 | PTCARENOTE ---
Pt's lungs reassessed. Pt with rales 1/2 up bilaterally (down from rales all the way up bilaterally). Pulse ox 98% on room air. Pt denies SOB at this time. Will continue to monitor.
--- NOTE | 2024-07-05 16:30 | PTCARENOTE ---
Patient received from the denture laboratory technician. Right groin figure [address], dressing dry and soft. NSR with a 1st degree HB, occ. PVC's. Dependent +1 edema. Right pedal weak +1, left pedal verified with Doppler. Legs are brown, red, warm, large
varicose veins. Using urinal, voiding large volumes of yellow urine since IV Lasix. Course crackles left base, fine crackles right base, POX 97%. Patient eating, reminders on activity restrictions, verbalized understanding, call villagomez in reach
[2024-07-05] MEDS: NON-FORMULARY ITEM 0.5 MG PO (20:20)
[2024-07-05] MEDS: ELIQUIS 5 MG PO (20:20)
[2024-07-05] MEDS: MAGNESIUM OXIDE 500 MG PO (20:20)
[2024-07-05] MEDS: XALATAN OPHTHALMIC SOLUTION 1 DROP OPHTH (23:20)
[2024-07-05] MEDS: ANESTHETIC LOZENGE 1 LOZENGE PO (23:20)
[2024-07-06 03:01] VITALS: BP 101/63
[2024-07-06 04:03] LABS: Hematocrit 34.6 % (39.0-52.0); Hemoglobin 11.4 g/dL (13.0-18.0); Mean Corp Hgb Conc. 32.9 g/dL (33.0-37.0); Mean Corpuscular Hgb 29.8 pg (27.0-31.0); Mean Corpuscular Volume 90.3 fL (80.0-94.0); Mean Platelet Volume 9.5 fL (7.4-10.4); Platelet Count 139 10^3/uL (130-400); Red Blood Cell Count 3.83 10^6/uL (4.70-6.10); Red Cell Dist. Width 13.8 % (11.5-14.5); White Blood Cell Count 5.8 10^3/uL (4.8-10.8)
[2024-07-06 04:04] LABS: Blood Urea Nitrogen 23 mg/dl (9-20); Calcium 8.9 mg/dl (8.4-10.2); Carbon Dioxide 27 mmol/L (22-30); Chloride 102 mmol/L (98-107); Estimated Creatinine Clearance 104 ml/min; Glucose 143 mg/dl (70-99); Magnesium 2.1 mg/dl (1.6-2.3); Potassium 4.3 mmol/L (3.5-5.1); Sodium 141 mmol/L (135-145); eGFR > 60.00
[2024-07-06 07:38] VITALS: BP 112/67
[2024-07-06 07:49] VITALS: BMI 28.7
--- NOTE | 2024-07-06 08:00 | PTCARENOTE ---
Assumed care of pt from prev nsg shift; Pt AAOx3 w/no c/o CP or SOB. Pt's R groin site is w/dressing C/D/I w/no signs or symptoms of bleeding or hematoma. Pt's VS stable w/HR in the 60's & Pt's BP this AM 112/67. Pt is SR w/1st deg AV block on
telemetry monitoring. Pt w/callbell within reach & plan of care ongoing.
--- NOTE | 2024-07-06 08:48 | W.PN.CARDCBS ---
Addendum entered and electronically signed by Irving Gillespie MD 07/06/24 09:14:
I saw and examined the patient.
The CORPORATE TREASURER's note was reviewed and I agree with the note.
Comment: He is feeling better already now that he is back in NSr. on exam his LFemoral site is soft well healed no hematoma, lungs cta, rrr. He will go home and continue DOAC for his PAF, expressed the importance of compliance given DCCV in the
case on 07/05/24. He understands. Otherwise continue current mediciations for his chronic HFrEF.
Original Note:
Today's Communication / Plan
-
post ablation, stable for d/c home
Impression / Plan
-
Primary care physician: Carmelo Shepherd MD
Primary massage operator: Samir Wallace MD
64 yr old gentleman with symptomatic persistent AF failed DCCV rate controlled with digoxin and Metoprolol with CHF, and hx of mitral valve repair in 1997, tricuspid valve repair, PFO closure and maze procedure in 2020 with moderately reduced LV
systolic functions, frequent atrial tachycardia and atrial flutters with history of GI bleeds and is admitted with acute on chronic heart failure likely due to atrial fibrillation with hx of ASD s/o surgical repair with patch presented today to the
EP lab for atrial fibrillation ablation.
Impression/Plan:
#Symptomatic persistent Afib/Aflutter - post PFA/PVI, PW and roof dependent Aflutter ablation 07/05, he feels great
tele SR 1deg AVB, groin stable
OAC Eliquis, Stop Digoxin
f/u CBC 2 weeks
#Acute on Chronic HFrEF 35-40% - LA pressure 21, IV diuresed 40mg lasix post procedure -725cc
continue GDMT metoprolol 50mg, Entresto, lasix 20mg daily (was PRN)
Reviewed 2GNa restrictions, daily wts at home
#PAD prior iliac stent 2016
#h/o MV repair , redo MVR, TV repair, PFO, MAZE 2020
#h/o GIB - poss evaluation for Watchman as outpt
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
Progress Note - Paper Wrapping Machine Operator
Subjective
Date of Service: July 06, 2024
denies cp, sob
Objective
Labs:
07/06/24 03:10
07/06/24 03:10
Labs
Hgb 11.4 g/dL (13.0-18.0) L 07/06/24 03:10
Hct 34.6 % (39.0-52.0) L 07/06/24 03:10
Plt Count 139 10^3/uL (130-400) 07/06/24 03:10
Sodium 141 mmol/L (135-145) 07/06/24 03:10
Potassium 4.3 mmol/L (3.5-5.1) 07/06/24 03:10
BUN 23 mg/dl (9-20) H 07/06/24 03:10
Creatinine 0.8 mg/dL (0.7-1.3) 07/06/24 03:10
Glucose 143 mg/dl (70-99) H 07/06/24 03:10
Vital Signs and I&O:
Vital Signs
Temp Pulse Resp BP Pulse Ox
98.0 F 74 18 112/67 98
07/06/24 07:35 07/06/24 08:45 07/06/24 07:35 07/06/24 07:38 07/06/24 07:35
Vital Signs
Temp Pulse Resp BP Pulse Ox
98.0 F 74 18 112/67 98
07/06/24 07:35 07/06/24 08:45 07/06/24 07:35 07/06/24 07:38 07/06/24 07:35
Intake & Output
07/04/24 07/05/24 07/06/24 07/07/24
06:59 06:59 06:59 06:59
Intake Total 1350 / 1350
Output Total 2074
Balance -725 / -725
Physical Exam
Physical Exam
NAD< AOX3
S1, S2, RRR
CTAB, non labored
SNTND bsx4
R fem site c/d/i soft
[2024-07-06] MEDS: ELIQUIS 5 MG PO (09:13)
[2024-07-06] MEDS: MAGNESIUM OXIDE 500 MG PO (09:14)
--- NOTE | 2024-07-06 10:19 | W.DS.TRANS ---
DC Summary - Feed Research Technician
-
Discharge Instructions:
Discharge Diagnosis/Procedures Afib post ablation
Diet Low Cholesterol
Driving Restrictions No driving for 24 hours
Instructions:
Stand-Alone Forms: DC Instructions- Cath/EP Lab
Changes to Home Medications: Yes
Discharge Medications:
DC Medications w/original date entered in [employer]
apixaban 5 mg tablet (Eliquis) 5 mg PO BID #60 tabs 02/12/24
cholecalciferol (vitamin D3) 50 mcg (2,000 unit) tablet (Vitamin D3) 50 mcg PO DAILY 03/02/24
cyanocobalamin (vitamin B-12) 1,000 mcg tablet (Vitamin B-12) 1,000 mcg PO DAILYPRN PRN not feeling well 03/02/24
Saccharomyces boulardii 250 mg capsule (Florastor) 500 mg PO BID 07/05/24
amoxicillin 500 mg capsule 500 mg PO BID 07/05/24
ascorbic acid (vitamin C) 500 mg tablet (Vitamin C) 500 mg PO DAILY 07/05/24
cabergoline 0.5 mg tablet 0.5 mg PO MOTH 07/05/24
clotrimazole 1 % topical cream 1 applic topical BIDPRN PRN itch 07/05/24
latanoprost 0.005 % eye drops 1 drp ophthalmic (eye) HS 07/05/24
magnesium 250 mg tablet 500 mg PO BID 07/05/24
metoprolol succinate 50 mg tablet,extended release 24 hr 50 mg PO DAILY 07/05/24
niacin 100 mg tablet 100 mg PO BID 07/05/24
prasterone (dhea) 25 mg tablet (DHEA) 25 mg PO DAILYPRN PRN not feeling well 07/05/24
sacubitril 24 mg-valsartan 26 mg tablet (Entresto) 1 tab PO BID 07/05/24
zinc 15 mg tablet 30 mg PO DAILY 07/05/24
furosemide 20 mg tablet 20 mg PO DAILY #0 tabs 07/06/24
Home Medication Changes
lasix daily, stopped digoxin
Pending Results: No
[2024-07-06 11:53] VITALS: BP 98/58
[2024-07-06 11:55] VITALS: BP 102/68
--- NOTE | 2024-07-06 12:07 | CM ---
Chart reviewed. Patient is independent of ADLS, lives with his in a bilevel house, total of 9 JAISON, 0 DME. Plan is for the patient to return home.
--- NOTE | 2024-07-06 14:50 | PTCARENOTE ---
D/C instructions discussed w/pt. IV line & quality assurance monitor body D/C'd. Pt left w/personal belongings incl cell phone & motel front desk clerk. Pt taken out via WC by staff w/spouse driving him home.
== END 2024-07-06 15:20 | disposition home or self-care (01) ==
LOC: CATH 08:38
PROVIDERS: Nurse Practitioner Adult Health; ATTENDING PHYSICIAN Internal Medicine Cardiovascular Disease; FAMILY PHYSICIAN Internal Medicine; OTHER PHYSICIAN Internal Medicine Cardiovascular Disease
DX: I48.19 Other persistent atrial fibrillation (principal); I47.19 Other supraventricular tachycardia; L03.116 Cellulitis of left lower limb; Z86.718 Personal history of other venous thrombosis and embolism; M25.572 Pain in left ankle and joints of left foot; Z91.040 Latex allergy status; I50.9 Heart failure, unspecified; I87.2 Venous insufficiency (chronic) (peripheral); I48.92 Unspecified atrial flutter; Z79.01 Long term (current) use of anticoagulants; Z79.899 Other long term (current) drug therapy; Q21.12 Patent foramen ovale
CPT/HCPCS: C1730; C1733; C1769; C1732; C1892; C1894; 80048; 83735; 85027; 85347; 86900; 86901; 93005; 93655; 93656; 93657

== ENCOUNTER 2024-09-07 09:12 | Day surgery (SDC) | payer MEDICARE, SELFPAY ==
[2024-09-05 10:45] VITALS: BMI 30.1
--- NOTE | 2024-09-05 11:51 | HPS.HSE ---
Family Physician
-
Family Physician: NO INTERVIEW UNKNOWN
Chief Complaint
-
Paroxysmal atrial fibrillation and atrial flutter.
History of Present Illness
The patient is a 64 year old male presenting today for paroxysmal atrial fibrillation and atrial flutter. The patient reports a history of dyspnea with exertion and palpitations associated with this diagnosis. He previously underwent a
INNA-guided cardioversion in February 2024 and pulmonary vein isolation and atrial flutter ablation in June 2024 due to his arrhythmia. He is on current pharmacological therapy with Metoprolol Succinate. He has been compliant with Eliquis for oral
anticoagulation. He notes that his atrial fibrillation symptoms greatly interfere with his activities of daily living and overall impact his quality of life. He also notes significant fatigue with his current Metoprolol. He is interested in pursuing
a cardioversion for further arrhythmia management. He denies any current complaints today such as chest pain, shortness of breath at rest, nausea, vomiting, diarrhea, lightheadedness, dizziness, sore throat, or fever.
Medical History
Past Medical History
Past Medical History: Reports Other
Additional Past Medical History:
1. Paroxysmal atrial fibrillation and atrial flutter, status post INNA-guided cardioversion, 02/2024, and pulmonary vein isolation and atrial flutter ablation 06/2024; pharmacological therapy with Metoprolol Succinate, oral anticoagulation with
Eliquis.
2. Chronic systolic heart failure, reduced ejection fraction.
3. Status post mitral valve repair, 1997, and redo mitral valve repair, bioprosthetic tricuspid valve repair, PFO and ASD closure, and MAZE 2020.
4. Peripheral vascular disease, status post iliac stenting.
5. Chronic venous insufficiency.
6. Bilateral lower extremity DVT, 2008, likely secondary to prolonged immobility; retained IVC filter.
7. Probable obstructive sleep apnea.
8. Colon polyps.
9. Nephrolithiasis.
10. Hemorrhoids.
11. Hepatic steatosis.
12. Migraines.
13. Vertigo.
14. 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
15. Chronic low back pain.
16. Sciatica.
17. Osteoarthritis.
18. Iron deficiency anemia.
19. History of recurrent cellulitis.
20. Glaucoma.
21. Obesity, BMI 30.0.
Past Surgical History: Reports Other
Additional Past Surgical History:
1. Pulmonary vein isolation and atrial flutter ablation.
2. INNA-guided cardioversion.
3. IVC filter.
4. Iliac stent.
5. Bilateral varicose vein stripping.
6. Mitral valve repair.
7. Redo mitral valve repair, bioprosthetic tricuspid valve repair, PFO and ASD closure, and MAZE.
8. Right lower extremity fasciotomy.
9. Hemorrhoid surgery.
10. Colonoscopy x3.
Social History
Tobacco: Non-smoker
Alcohol: None
Personal:
Living: Other (He lives in a bi-level home with his . )
Family History
Family History: Not pertinent
Allergies / Home Medications
Allergies reflects when Allergies were last updated in [facility].
Home Medications with original date entered in [facility]
Allergy/Medication List:
Home medications:
1. Amoxicillin 2000 mg p.o. prior to dental appointments.
2. Ascorbic acid 500 mg p.o. daily.
3. Cabergoline 0.5 mg p.o. on Mondays and .
4. Cholecalciferol 50 mcg p.o. daily.
5. Eliquis 5 mg p.o. twice a day.
6. Furosemide 20 mg p.o. daily.
7. Lactobacillus 1 capsule p.o. daily as needed.
8. Latanoprost 1 drop ophthalmic at bedtime.
9. Magnesium 500 mg p.o. twice a day.
10. Metoprolol Succinate 50 mg p.o. twice a day.
11. Niacin 100 mg p.o. twice a day.
12. DHEA 25 mg p.o. daily as needed.
13. Entresto 24-26 mg p.o. twice a day.
14. Zinc 1 tablet p.o. daily.
Allergies: Latex. Cats.
Review of Systems
-
A 12 point ROS was completed and negative except as noted: Yes
Physical Exam
Vital Signs
Blood pressure 109/75. Heart rate 115. Respirations 18. Pulse ox 100%.
Height 5 feet, 9 inches. Weight 92.3 kg. BMI 30.0.
Physical Exam
General: Well Developed, Well Nourished and No Apparent Distress
HEENT: NormoCephalic, Moist mucous membranes and Atraumatic
Respiratory: Clear
Cardiac: Irregular Rhythm
GI: Soft, Non Tender, Non Distended and Other (Obese. )
Musculoskeletal: Normal Gait & Station
Skin: Warm and Dry
Neuro: AO x 3 and Nonfocal/grossly intact
Laboratory Results
-
EKG 09/05/2024: Atrial flutter with 2:1 AV conduction. Incomplete right bundle branch block. Left anterior fascicular block. Septal infarct, age undetermined. T wave abnormality, consider anterior ischemia.
Transesophageal echocardiogram 03/02/2024: Normal left ventricular chamber size with moderately reduced left ventricular systolic function. Left ventricular ejection fraction visually estimated 35%. Normal right ventricular size with mildly reduced
right ventricular systolic function. Severely dilated left atrium. Moderately dilated right atrium. Left atrial appendage windsock morphology. No spontaneous echo contrast seen in the left atrial appendage. No left atrial appendage thrombus. Peak
velocities within the left atrial appendage are reduced. JOSE diameters: 0: Ostial diameter 3.13 cm, depth 5.4 cm. 45: Ostial diameter 2.9 cm, depth 4.5 cm. 90: Ostial diameter 2 cm, depth 4.1 cm. 135: Ostial diameter 2.6 cm, depth 5.6 cm. There is a
bioprosthetic valve present in the mitral position. Valve appears well-seated. Averaged mean transmitral gradient 5mmHg. Trace central mitral regurgitation. No paravalvular regurgitation. Trileaflet, sclerotic aortic valve with trace, central
aortic regurgitation. There is Annuloplasty ring present in the tricuspid position. No tricuspid stenosis. Mean gradient 2 mmHg. Mild tricuspid regurgitation. Estimated pulmonary artery pressure of 23-26 mmHg assuming a right atrial pressure of 5 to
8 mmHg. Trace pulmonic regurgitation. Mildly dilated aortic root and proximal ascending aorta: Sinus of Valsalva 3.45 cm, sinotubular junction 3.8 cm. Proximal ascending aorta 4.38 cm. Descending aorta 3 cm. Mild plaque was present in the descending
aorta. No aortic dissection. Compared to prior transthoracic echocardiogram report from outside hospital dated 02/23/2024, LV ejection fraction previously estimated 45%. Aortic and tricuspid regurgitation previously reported moderate.
Impression/Plan
-
IMPRESSION/PLAN:
1. Paroxysmal atrial fibrillation and atrial flutter: The patient is in need of a cardioversion with Dr. Radha Gillespie on 09/07/2024. The benefits and risks of the procedure have been explained to the patient. The patient understands these
risks and wishes to proceed. He is aware to hold his Metoprolol the morning of his procedure.
--- NOTE | 2024-09-07 10:54 | ITS.CL.CARDI ---
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
Cardioversion
Procedure Report:
Date of Procedure: 09/07/24
Procedure: Cardioversion.
Indication: Symptomatic atrial fibrillation.
Performing Physician: Radha Gillespie MD
Technique: The patient was brought to the holding area. Signed informed consent was obtained. A time out was called and performed. The patient was sedated by a member of the anesthesia service. Anticoagulation status was reviewed and was
appropriate. R-2 pads were placed anteriorly and posteriorly. A 200 J synchronized biphasic shock restored normal sinus rhythm without significant bradycardia. There were no complications.
Conclusion: Uncomplicated cardioversion from atrial fibrillation to sinus rhythm.
Recommendation: Routine post cardioversion care. 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
cc:Raya
== END 2024-09-07 11:10 | disposition home or self-care (01) ==
LOC: CATH 09:12
PROVIDERS: ATTENDING PHYSICIAN Internal Medicine Cardiovascular Disease; FAMILY PHYSICIAN Internal Medicine; OTHER PHYSICIAN Internal Medicine Cardiovascular Disease
DX: I48.0 Paroxysmal atrial fibrillation (principal); I48.92 Unspecified atrial flutter; I50.22 Chronic systolic (congestive) heart failure; I44.4 Left anterior fascicular block; I73.9 Peripheral vascular disease, unspecified; I87.2 Venous insufficiency (chronic) (peripheral); Z79.01 Long term (current) use of anticoagulants
CPT/HCPCS: 92960; 93005

== ENCOUNTER 2024-09-21 23:16 | Inpatient (IN) | payer MEDICARE, SELFPAY ==
[2024-09-21 17:08] VITALS: BP 139/96
--- NOTE | 2024-09-21 17:08 | ED.GENMED ---
ED Provider Triage
<Moses Feng PA-C - Last Filed: 09/21/24 17:11>
-
Patient seen by provider in Triage?: Seen in Triage
64 yo male presents to the ED with tachycardia and SOB x 1 week. Was in [facility] 6d ago and found to be in AF. On vancomycin currently for CDiff. No chest pain. No fevers. Reports full compliance with Eliquis
Looks well. No respiratory distress.
Check labs, EKG.
History of Present Illness
<Moses Feng PA-C - Last Filed: 09/21/24 17:11>
General
Chief Complaint: Heart Rate Problem
Time Seen by Provider: 09/21/24 21:20
<ETIENNE Bello - Last Filed: 09/22/24 03:08>
General
Source: patient
Exam Limitations: none
History of Present Illness
History of Present Illness:
This is a 64 year old male that comes in with c/o atrial fib. State that he went to see Dr. Wallace today. States that he has been in atrial fib on and off. States that he was told to come to the ER. State that cardioversion didn't work. States that
he was also in [facility]' last week with C-diff and is still on antibiotics. States that he was told that they will start him on medication but he would need to be in the hospital for this. States that he was slight SOB today. Denies any fever,
chills, chest pain, abd pain, nausea, vomiting, diarrhea, headache, dizziness, urinary burning.
Past History
<Moses Feng PA-C - Last Filed: 09/21/24 17:11>
Past History
ED Past Medical History: Arrthythmia and Valvular disease
ED Past Surgical History: Other (Fasciotomy)
<ETIENNE Bello - Last Filed: 09/22/24 03:08>
Past History
ED Past Medical History: Arrthythmia (Atrial fib/flutter), CHF, HTN and Other (varicous vein. cellulitis, C-diff, )
ED Past Surgical History: Cardiac (MItral valve replced, Tricuspid valve replaced. ) and Other (Fasciotomy, Brain tumor, Vein ablation, IVC filter, Illiac stent bilateral)
Social History
Tobacco: Non-smoker
Alcohol: None
Personal:
Living: with family
Review of Systems
<ETIENNE Bello - Last Filed: 09/22/24 03:08>
Review of Systems
All Other Systems: ROS reviewed and negative except as documented in HPI and ROS
Constitutional: Reports no symptoms; Denies fever or chills
EENT: Reports no symptoms
Respiratory: Reports trouble breathing; Denies cough
Cardiac: Reports other (Irregular heart beat); Denies chest pain
ABD/GI: Reports no symptoms; Denies abdominal pain, nausea, vomiting or diarrhea
: Reports no symptoms; Denies dysuria, frequency or urgency
Musculoskeletal: Reports no symptoms
Skin: Reports no symptoms
Neurological: Denies dizzy or headache
Psychiatric: Reports no symptoms
Phy Exam
<ETIENNE Bello - Last Filed: 09/22/24 03:08>
General Physical Exam
General Presentation: no apparent distress
General age: appears stated age
General Skin: warm and dry
General Habitus: elderly
General Mental: alert
General Hydration: appears well hydrated
ENT Exam
ENT Exam: TM's normal, pharynx normal and neck supple
Eye Exam
Eye Exam: EOMI
Cardiovascular Exam
Cardiovascular Exam: normal peripheral pulses and irregularly irregular
Pulmonary Exam
Pulmonary Exam: lungs clear, no respiratory distress, no rales, chest non tender, no crackles, no rhonchi, no wheezing and no cough
Gastrointestinal Exam
Gastrointestinal Exam: normal bowel sounds, non tender, soft, no organomegaly, no pulsatile mass and non distended
Musculoskeletal Exam
Musculoskeletal Exam: edema (Pitting edema lower leg R>L)
Skin Exam
Skin Exam: normal color, warm/dry and no petechia
Psychiatric Exam
Psychiatric Exam: normal mood/affect
Course
<Moses Feng PA-C - Last Filed: 09/21/24 17:11>
Orders/Labs/Results
Orders:
Orders
09/21/24 16:59
Electrocardiogram (*1) Urgent
Reason for Study: Chest Pain
09/21/24 17:26
Complete Blood Count/With Diff Urgent
Comprehensive Metabolic Panel Urgent
Magnesium Urgent
09/21/24 21:44
Diltiazem 125 mg/125 ml Nss [Cardizem] 125 mg in 125 ml IV NOW
Initial dose in mg/hr, then titrate:: 5
Titrate to keep:: Heart rate 80-100 bpm
Titrate by mg/hr:: 5 mg/hr
Frequency of titrations (minutes):: 15
Maximum dose in mg/hr:: 15
Diltiazem HCl [Cardizem] 10 mg IV NOW STA
09/21/24 21:45
0.9% Sodium Chloride 500 ml [Nss] 500 ml IV BOLUS
CR Chest - 2 Views Urgent
Comment:
Reason For Exam: Chest pain, SOB
09/21/24 22:11
Troponin I Urgent
09/21/24 22:30
Admit/Transfer Patient As Directed
Co-Sign Provider:
Level of Care: Inpatient admission
Assign to:: IVU
Physician / Group: jesus,suma
Diagnosis: atiral fib
Reason for Hospitalization: atrial fib with RVr
Expected length of stay greater than two midnights?: Yes
ELOS- Estimated Length of Stay in days: 3
I certify the patient meets the requirements for IP care: Yes
09/21/24 22:31
Code Status As Directed
Resuscitation Status: Full Code
PRN Pain Medication Management As Directed
May give lesser potent ordered pain med per pt: Yes
preference::
Protocol:: Medication orders for pain may be administered in a
manner that supports deferring to patient preference
when the pt is:
- Requesting an ordered lesser potent pain medication.
Least to most potent pain medications are defined
as: acetaminophen < NSAID < tramadol < opioids
(morphine, oxycodone, hydromorphone).
- Requesting a lesser dose of the same medication IF
ORDERED.
- Requesting a less intrusive route of administration
if both routes are prescribed by the provider (PO <
IV).
09/22/24 00:29
Acetaminophen [Tylenol] 650 mg PO Q4HPRN PRN
Bisacodyl [Dulcolax] 10 mg RECTAL [id number] PRN
Diltiazem 125 mg/125 ml Nss [Cardizem] 125 mg in 125 ml IV PER PROTOCOL
Currently infusing. Continue current dose and titrate:: Yes
Titrate to keep:: Heart rate 80-100 bpm
Titrate by mg/hr:: 5 mg/hr
Frequency of titrations (minutes):: 15
Maximum dose in mg/hr:: 15
Docusate W/Senna [Senokot-S] 1 tablet PO BIDPRN PRN
Polyethylene Glycol Powder [Miralax] 17 grams PO DAILYPRN PRN
Vancomycin HCl [Firvanq] 250 mg PO Q6
09/22/24 00:29
Activity As Directed
Activity Level: As Tolerated
Vital Signs As Directed
Frequency: Per unit guidelines
09/22/24 Breakfast
Cholesterol Lowering
At Your Request: Full Participation
Cholesterol Lowering: Sodium, 2 Gram
Basic Metabolic Panel IN AM
Cardiovascular Evaluation IN AM
Complete Blood Count/No Diff IN AM
09/22/24 08:00
Apixaban [Eliquis] 5 mg PO BID
Sacubitril 24/Valsartan 26 [Entresto 24 mg/26 mg] 1 tab PO BID
09/22/24 22:00
Latanoprost [Xalatan Ophthalmic Solution] 1 drop BOTH EYES HS
09/23/24 06:00
Basic Metabolic Panel IN AM
Complete Blood Count/No Diff IN AM
09/24/24 06:00
Basic Metabolic Panel IN AM
Complete Blood Count/No Diff IN AM
09/25/24 06:00
Basic Metabolic Panel IN AM
Abnormal Lab Results
09/21/24
17:26
RBC 3.93 L 10^6/uL
(4.70-6.10)
Hgb 11.8 L g/dL
(13.0-18.0)
Hct 37.3 L %
(39.0-52.0)
MCV 94.9 H fL
(80.0-94.0)
MCHC 31.6 L g/dL
(33.0-37.0)
Absolute Lymphs (auto) 0.9 L 10^3/uL
(1.2-3.4)
Neutrophils % 76.0 H %
(42.2-75.2)
Lymphocytes % 15.5 L %
(20.5-51.1)
Carbon Dioxide 32 H mmol/L
(22-30)
Total Protein 5.6 L g/dl
(6.3-8.2)
09/21/24 17:26
09/21/24 17:26
Vital Signs
Initial and Last Documented VS:
Initial Vital Signs
Temp Pulse Resp BP Pulse Ox
98.0 F 135 18 139/96 100
09/21/24 17:08 09/21/24 17:08 09/21/24 17:08 09/21/24 17:08 09/21/24 17:08
Last Documented Vital Signs
Temp Pulse Resp BP Pulse Ox
98.0 F 87 22 118/54 97
09/21/24 17:08 09/22/24 03:00 09/22/24 00:15 09/22/24 00:27 09/22/24 00:15
<EITENNE Bello - Last Filed: 09/22/24 03:08>
Orders/Labs/Results
Orders:
Orders
09/21/24 16:59
Electrocardiogram (*1) Urgent
Reason for Study: Chest Pain
09/21/24 17:26
Complete Blood Count/With Diff Urgent
Comprehensive Metabolic Panel Urgent
Magnesium Urgent
09/21/24 21:44
Diltiazem 125 mg/125 ml Nss [Cardizem] 125 mg in 125 ml IV NOW
Initial dose in mg/hr, then titrate:: 5
Titrate to keep:: Heart rate 80-100 bpm
Titrate by mg/hr:: 5 mg/hr
Frequency of titrations (minutes):: 15
Maximum dose in mg/hr:: 15
Diltiazem HCl [Cardizem] 10 mg IV NOW STA
09/21/24 21:45
0.9% Sodium Chloride 500 ml [Nss] 500 ml IV BOLUS
CR Chest - 2 Views Urgent
Comment:
Reason For Exam: Chest pain, SOB
09/21/24 22:11
Troponin I Urgent
09/21/24 22:30
Admit/Transfer Patient As Directed
Co-Sign Provider:
Level of Care: Inpatient admission
Assign to:: IVU
Physician / Group: suma lee
Diagnosis: atiral fib
Reason for Hospitalization: atrial fib with RVr
Expected length of stay greater than two midnights?: Yes
ELOS- Estimated Length of Stay in days: 3
I certify the patient meets the requirements for IP care: Yes
09/21/24 22:31
Code Status As Directed
Resuscitation Status: Full Code
PRN Pain Medication Management As Directed
May give lesser potent ordered pain med per pt: Yes
preference::
Protocol:: Medication orders for pain may be administered in a
manner that supports deferring to patient preference
when the pt is:
- Requesting an ordered lesser potent pain medication.
Least to most potent pain medications are defined
as: acetaminophen < NSAID < tramadol < opioids
(morphine, oxycodone, hydromorphone).
- Requesting a lesser dose of the same medication IF
ORDERED.
- Requesting a less intrusive route of administration
if both routes are prescribed by the provider (PO <
IV).
09/22/24 00:29
Acetaminophen [Tylenol] 650 mg PO Q4HPRN PRN
Bisacodyl [Dulcolax] 10 mg RECTAL [id number] PRN
Diltiazem 125 mg/125 ml Nss [Cardizem] 125 mg in 125 ml IV PER PROTOCOL
Currently infusing. Continue current dose and titrate:: Yes
Titrate to keep:: Heart rate 80-100 bpm
Titrate by mg/hr:: 5 mg/hr
Frequency of titrations (minutes):: 15
Maximum dose in mg/hr:: 15
Docusate W/Senna [Senokot-S] 1 tablet PO BIDPRN PRN
Polyethylene Glycol Powder [Miralax] 17 grams PO DAILYPRN PRN
Vancomycin HCl [Firvanq] 250 mg PO Q6
09/22/24 00:29
Activity As Directed
Activity Level: As Tolerated
Vital Signs As Directed
Frequency: Per unit guidelines
09/22/24 Breakfast
Cholesterol Lowering
At Your Request: Full Participation
Cholesterol Lowering: Sodium, 2 Gram
Basic Metabolic Panel IN AM
Cardiovascular Evaluation IN AM
Complete Blood Count/No Diff IN AM
09/22/24 08:00
Apixaban [Eliquis] 5 mg PO BID
Sacubitril 24/Valsartan 26 [Entresto 24 mg/26 mg] 1 tab PO BID
09/22/24 22:00
Latanoprost [Xalatan Ophthalmic Solution] 1 drop BOTH EYES HS
09/23/24 06:00
Basic Metabolic Panel IN AM
Complete Blood Count/No Diff IN AM
09/24/24 06:00
Basic Metabolic Panel IN AM
Complete Blood Count/No Diff IN AM
09/25/24 06:00
Basic Metabolic Panel IN AM
Abnormal Lab Results
09/21/24
17:26
RBC 3.93 L 10^6/uL
(4.70-6.10)
Hgb 11.8 L g/dL
(13.0-18.0)
Hct 37.3 L %
(39.0-52.0)
MCV 94.9 H fL
(80.0-94.0)
MCHC 31.6 L g/dL
(33.0-37.0)
Absolute Lymphs (auto) 0.9 L 10^3/uL
(1.2-3.4)
Neutrophils % 76.0 H %
(42.2-75.2)
Lymphocytes % 15.5 L %
(20.5-51.1)
Carbon Dioxide 32 H mmol/L
(22-30)
Total Protein 5.6 L g/dl
(6.3-8.2)
09/21/24 17:26
09/21/24 17:26
H/H slightly low. carbon dioxide slightly elevated. total protein low
Vital Signs
Initial and Last Documented VS:
Initial Vital Signs
Temp Pulse Resp BP Pulse Ox
98.0 F 135 18 139/96 100
09/21/24 17:08 09/21/24 17:08 09/21/24 17:08 09/21/24 17:08 09/21/24 17:08
Last Documented Vital Signs
Temp Pulse Resp BP Pulse Ox
98.0 F 87 22 118/54 97
09/21/24 17:08 09/22/24 03:00 09/22/24 00:15 09/22/24 00:27 09/22/24 00:15
<ETIENNE Bello - Last Filed: 09/22/24 03:08>
MDM/Problems Addressed
Differential Diagnosis Includes:
Atrial fib
MDM/Problems Addressed:
This is a 64 year old male that comes in with c/o atrial fib. States that he saw Dr. Wallace today and he was told to come to the hospital so they could take care of his atrial fib. State that they want to put patient on medication and he would need
to be admitted.
Will check labs, Start on Cardizem as his heart rate was 134 when in the room and admit. Hospitalist notified.
Chronic conditions affecting care:
Atrial fib/flutter
Acute Exacerbation and/or Progression of Chronic Illness:
Atrial fib/flutter
<ETIENNE Bello - Last Filed: 09/22/24 03:08>
*Radiology
Radiology exam reviewed: radiology read reviewed (Chest-Mild acute cardiogenic pulmonary edema. Moderate cardiomegaly. Previous mitral and tricuspid valve replacement. Mild scarring in both lower lungs. mildly decreased bilateral lung volumes. )
*Pulse Oximetry
Patient hypoxic: no
*EKG
Interpreted by ED Provider?: Yes
Heart Rate: 134
Rate: tachycardiac
Rhythm: a-fib
[place]: left axis deviation
QRS Pattern: normal QRS
Ischemia: no ischemia
*Service Transformer Repair Supervisor Interpretation
Rate: tachycardiac
Interpretation: abnormal
Heart Rate: 134
Rhythm: a-fib
*Critical Care Note
Total Time (30-74mins, 75-104mins- exclusive of procedures): Not Applicable
ED Attending Note
<Moses Feng PA-C - Last Filed: 09/21/24 17:11>
-
Portions of this chart may have been created with voice recognition software.� Occasional wrong word or��sound alike� substitutions may have occurred due to the inherent limitations of voice recognition software.
Discharge Plan
Departure
Patient Disposition: Admit
Date of Disposition: 09/21/24
Time of Disposition: 21:57
Admit to: Telemetry
Presentation/result/management discussed w/ accepting MD/DO: Hospitalist
Patient with high blood pressure during this ER visit?: Yes
Condition: Good
Covid-19: Not Applicable
Discharge Problem:
Uncontrolled atrial fibrillation
Interventions
Interventions:
*Risk Screen - Suicide Last Done: 09/22/24 00:31
*ED COVID-19 Vaccine History Last Done: 09/22/24 00:31
*Nursing Disposition Last Done: 09/22/24 00:35
ED- Cardiac Assessment Last Done: 09/21/24 22:02
ED- Pulmonary Assessment Last Done: 09/21/24 22:02
Discharge Date and Time
Discharge Date/Time: 09/22/24 00:36
[2024-09-21 17:34] LABS: % Basophils 0.5 % (0-2); % Eosinophils 1.7 % (0-6); % Immature Granulocytes 0.2 % (0-0.5); % Lymphocytes 15.5 % (20.5-51.1); % Monocytes 6.1 % (1.7-9.3); Absolute Eosinophils 0.1 10^3/uL (0-0.7); Absolute Lymphocytes 0.9 10^3/uL (1.2-3.4); Absolute Monocytes 0.4 10^3/uL (0.1-0.6); Absolute Neutrophils 4.5 10^3/uL (1.4-6.5); Hematocrit 37.3 % (39.0-52.0); Hemoglobin 11.8 g/dL (13.0-18.0); Mean Corp Hgb Conc. 31.6 g/dL (33.0-37.0); Mean Corpuscular Volume 94.9 fL (80.0-94.0); Mean Platelet Volume 8.9 fL (7.4-10.4); Nucleated Red Blood Cells % 0 % (-); Platelet Count 172 10^3/uL (130-400); Red Blood Cell Count 3.93 10^6/uL (4.70-6.10); Red Cell Dist. Width 13.8 % (11.5-14.5); White Blood Cell Count 5.9 10^3/uL (4.8-10.8)
[2024-09-21 17:49] LABS: ALT (SGPT) 19 U/L (0-50); AST (SGOT) 29 U/L (17-59); Albumin 3.7 g/dl (3.5-5.0); Alkaline Phosphatase 58 U/L (38-126); Blood Urea Nitrogen 11 mg/dl (9-20); Calcium 8.5 mg/dl (8.4-10.2); Carbon Dioxide 32 mmol/L (22-30); Chloride 103 mmol/L (98-107); Glucose 83 mg/dl (70-99); Magnesium 2.1 mg/dl (1.6-2.3); Potassium 4.1 mmol/L (3.5-5.1); Sodium 139 mmol/L (135-145); Total Protein 5.6 g/dl (6.3-8.2); eGFR > 60.00
[2024-09-21 21:15] VITALS: BP 101/64
[2024-09-21 22:00] VITALS: BP 102/72
[2024-09-21 22:17] VITALS: BP 97/64
[2024-09-21] MEDS: NSS 500 IV (22:17)
[2024-09-21] MEDS: CARDIZEM 125 IV (22:19)
--- NOTE | 2024-09-21 22:32 | HPS.HSE ---
Family Physician
-
Family Physician: NOT KNOW UNKNOWN - PT DOES
Chief Complaint
-
sent to ER by Card for Prx AF wit RVR
History of Present Illness
HPI
64M HX Prx AF, chr Eliquis, uncomplicated CV in Aug 2024 seen at ER seent in Cardiologi
- in and out of A Fib
- saw Dr. Wallace he was told to come to the ER reports cardioversion didn't work
- Recent admission to [facility] last week with C-diff and is still on antibiotics.
- slight SOB today.
ROS
Denies any fever, chills, chest pain, abd pain, nausea, vomiting, diarrhea, headache, dizziness, urinary burning.
Medical History
Past Medical History
Past Medical History: Reports Other
Additional Past Medical History:
1. Paroxysmal atrial fibrillation and atrial flutter, status post INNA-guided cardioversion, 02/2024, and pulmonary vein isolation and atrial flutter ablation 06/2024; pharmacological therapy with Metoprolol Succinate, oral anticoagulation with
Eliquis.
2. Chronic systolic heart failure, reduced ejection fraction.
3. Status post mitral valve repair, 1997, and redo mitral valve repair, bioprosthetic tricuspid valve repair, PFO and ASD closure, and MAZE 2020.
4. Peripheral vascular disease, status post iliac stenting.
5. Chronic venous insufficiency.
6. Bilateral lower extremity DVT, 2008, likely secondary to prolonged immobility; retained IVC filter.
7. Probable obstructive sleep apnea.
8. Colon polyps.
9. Nephrolithiasis.
10. Hemorrhoids.
11. Hepatic steatosis.
12. Migraines.
13. Vertigo.
14. 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
15. Chronic low back pain.
16. Sciatica.
17. Osteoarthritis.
18. Iron deficiency anemia.
19. History of recurrent cellulitis.
20. Glaucoma.
21. Obesity, BMI 30.0.
Past Surgical History: Reports Other
Additional Past Surgical History:
1. Pulmonary vein isolation and atrial flutter ablation.
2. INNA-guided cardioversion.
3. IVC filter.
4. Iliac stent.
5. Bilateral varicose vein stripping.
6. Mitral valve repair.
7. Redo mitral valve repair, bioprosthetic tricuspid valve repair, PFO and ASD closure, and MAZE.
8. Right lower extremity fasciotomy.
9. Hemorrhoid surgery.
10. Colonoscopy x3.
Social History
Tobacco: Non-smoker
Alcohol: None
Personal:
Living: Other (He lives in a bi-level home with his . )
Family History
Family History: Not pertinent
Allergies / Home Medications
Allergies reflects when Allergies were last updated in [facility].
Home Medications with original date entered in [facility]
Allergy/Medication List:
Home medications:
1. Amoxicillin 2000 mg p.o. prior to dental appointments.
2. Ascorbic acid 500 mg p.o. daily.
3. Cabergoline 0.5 mg p.o. on Mondays and .
4. Cholecalciferol 50 mcg p.o. daily.
5. Eliquis 5 mg p.o. twice a day.
6. Furosemide 20 mg p.o. daily.
7. Lactobacillus 1 capsule p.o. daily as needed.
8. Latanoprost 1 drop ophthalmic at bedtime.
9. Magnesium 500 mg p.o. twice a day.
10. Metoprolol Succinate 50 mg p.o. twice a day.
11. Niacin 100 mg p.o. twice a day.
12. DHEA 25 mg p.o. daily as needed.
13. Entresto 24-26 mg p.o. twice a day.
14. Zinc 1 tablet p.o. daily.
Allergies: Latex. Cats.
Review of Systems
-
A 12 point ROS was completed and negative except as noted: Yes
Physical Exam
Vital Signs
Vital Signs
Temp Pulse Resp BP Pulse Ox
98.0 F 88 26 101/64 100
09/21/24 17:08 09/21/24 21:45 09/21/24 21:45 09/21/24 21:15 09/21/24 21:14
Physical Exam
General: Well Developed and No Apparent Distress
HEENT: NormoCephalic, Moist mucous membranes and Atraumatic
Respiratory: Clear
Cardiac: Irregular Rhythm
GI: Soft, Non Tender, Non Distended and Other (Obese. )
Musculoskeletal: Normal Gait & Station
Skin: Warm and Dry
Neuro: AO x 3 and Nonfocal/grossly intact
Laboratory Results
-
09/21/24 17:26
09/21/24 17:26
Laboratory Results
Total Bilirubin 1.0 mg/dl (0.2-1.3) 09/21/24 17:26
AST 29 U/L (17-59) 09/21/24 17:26
ALT 19 U/L (0-50) 09/21/24 17:26
Alkaline Phosphatase 58 U/L (38-126) 09/21/24 17:26
Data Reviewed
-
Medical Tests (Nuc Med, Echo, EKG etc): Report Reviewed by me
Lab Data: Labs Reviewed by me
Old Records: Reviewed
Impression/Plan
-
Reviewed VS: HR 135 --> 88 BP 140/100 --> 100/65
Laboratory Tests
07/06/24 09/21/24
03:10 17:26
Hgb 11.4 L 11.8 L
Creatinine 0.7
eGFR > 60.00
EKG
ATRIAL FLUTTER WITH 2:1 A-V CONDUCTION
NONSPECIFIC ST AND T WAVE ABNORMALITY
ABNORMAL ECG
WHEN COMPARED WITH ECG OF 07-SEP-2024 10:31,
ATRIAL FLUTTER HAS REPLACED SINUS RHYTHM
VENT. RATE HAS INCREASED BY 70 BPM
NONSPECIFIC T WAVE ABNORMALITY HAS REPLACED INVERTED T WAVES IN ANTERIOR LEADS
03/02/24 [facility]
LVEF 35%
Nl RV size and function
Severely dilated left atrium
Moderately dilated right atrium
No left atrial appendage thrombus
Reviewed VS: HR 135 --> 88 BP 140/100 --> 100/65
Data
EKG
ATRIAL FLUTTER WITH 2:1 A-V CONDUCTION
NONSPECIFIC ST AND T WAVE ABNORMALITY
ABNORMAL ECG
WHEN COMPARED WITH ECG OF 07-SEP-2024 10:31,
ATRIAL FLUTTER HAS REPLACED SINUS RHYTHM
VENT. RATE HAS INCREASED BY 70 BPM
NONSPECIFIC T WAVE ABNORMALITY HAS REPLACED INVERTED T WAVES IN ANTERIOR LEADS
03/02/24 [facility]
LVEF 35
Nl RV size and function
Severely dilated left atrium
Moderately dilated right atrium
No left atrial appendage thrombus
No prior hospitalist admission:
ASSESSMENT & PLAN
Pending Rx reconciliation
Prx AF & A flutter with RVR - control HR on Dilatiazem gtt
HX [facility]NA-guided cardioversion 02/2024
HX pulmonary vein isolation and atrial flutter ablation 06/2024
HX cardioversion with Dr. Radha Gillespie 09/07/2024
HX pharmacological therapy with Metoprolol Succinate, oral anticoagulation with Eliquis.
Known Severely dilated LA and moderately dilated RA
- Diltiazem gtt
- cont. chr Eliquis
- CBC acrd consult
Recent HX CDAD @ [facility]
- on PO vancomycin till Tuesday09/24/24
HX Chronic HFrEF
Last LVEF 35%
- cont. BORDER GUARD PO Lasix and Entresto
- daily wt
- daily BMP
HX MVR 1997, and redo MVR plus bioprosthetic TVR, PFO and ASD closure, and MAZE 2020.
HX status post iliac stenting for PAD
Chronic venous insufficiency
Bilateral lower extremity DVT, 2008, likely secondary to prolonged immobility; retained IVC filter.
Chronic conditions;
HX Probable obstructive sleep apnea.
HX Colon polyps.
HX Nephrolithiasis.
HX Hemorrhoids.
HX Hepatic steatosis.
Migraines.
Vertigo.
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
Chronic low back pain. Sciatica; stabe
Osteoarthritis.
Iron deficiency anemia.
HX recurrent cellulitis.
Glaucoma.
Obesity, BMI 30.0.
DVT Px: on BORDER GUARD Eliquis
Full code
IVU
[2024-09-21 22:42] LABS: Troponin I < 0.012 ng/ml
[2024-09-21 23:00] VITALS: BP 101/68
[2024-09-22] VITALS (8 sets, daily range): BP systolic 96–118; BP diastolic 54–88; BMI 29.6
[2024-09-22] MEDS: XALATAN OPHTHALMIC SOLUTION 1 DROP BOTH EYES ×2 (01:33→22:57)
[2024-09-22] MEDS: FIRVANQ 125 MG PO ×5 (01:35→23:15)
[2024-09-22] MEDS: ENTRESTO 24 MG/26 MG 1 TAB PO ×3 (02:10→23:14)
[2024-09-22] MEDS: ELIQUIS 5 MG PO ×3 (02:10→23:15)
--- NOTE | 2024-09-22 02:17 | PTCARENOTE ---
Pt admitted to unit. Pt A&Ox4. Moves all extremities. Endorses (+) sensation x4. PERRLA 3. Ambulated to bathroom. Gait steady. Resps easy and even. Lungs CTABL. RA. (+) pulses noted. Pt declined removing compression socks. Pt in a bigeminy upon
arrival. Cardizem gtt infusing @ 5/hr. Tolerating well with HR in the 70's to 80's. SBP in the high 100's to 110's. Abd soft nontender. States LBM was 1/3. Staes he had 2 'loose' BM's. Skin check performed. No open areas noted. Pt instructed baby registry sales consultant
villagomez, lights and television. Reviewed home meds with pt as well as currently ordered meds. Pt insistent on dose of PO Vanco as well as Entresto and Eliquis even though next ordered dose is scheduled for 0800hrs. Pt called clinical lab clerk office (
[facility]) from his room. Pt was irate and became belligerent with staff. Staff had explained on numerous occasions that the timing in hospital is not the same as when at home. Explained the potential ramifications of taking doses too close together
for certain medications. Pt remained insistent. Discussed this with house CLINICAL TRAINER who okayed doses of Eliquis and Entresto. Given to pt as requested. No s/s of distress assessed. Will continue to monitor.
[2024-09-22 04:56] LABS: Hemoglobin 10.9 g/dL (13.0-18.0); Mean Corp Hgb Conc. 32.1 g/dL (33.0-37.0); Mean Corpuscular Hgb 30.1 pg (27.0-31.0); Mean Corpuscular Volume 93.9 fL (80.0-94.0); Mean Platelet Volume 8.9 fL (7.4-10.4); Platelet Count 156 10^3/uL (130-400); Red Blood Cell Count 3.62 10^6/uL (4.70-6.10); Red Cell Dist. Width 13.7 % (11.5-14.5); White Blood Cell Count 4.6 10^3/uL (4.8-10.8)
[2024-09-22 05:18] LABS: Blood Urea Nitrogen 13 mg/dl (9-20); Calcium 8.3 mg/dl (8.4-10.2); Carbon Dioxide 27 mmol/L (22-30); Chloride 104 mmol/L (98-107); Estimated Creatinine Clearance 94 ml/min; Glucose 97 mg/dl (70-99); HDL Cholesterol 32 mg/dl; LDL Cholesterol, Calculated 49 mg/dl; Potassium 3.9 mmol/L (3.5-5.1); Sodium 139 mmol/L (135-145); Total Cholesterol 91 mg/dl (50-199); Triglyceride 53 mg/dl (10-149); Very Low Density Lipoprotein 10 mg/dl (0-30); eGFR > 60.00
--- NOTE | 2024-09-22 09:06 | W.PN.CD ---
Addendum entered and electronically signed by José Luis Oliva MD 09/22/24 12:14:
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
-64-year-old male with extensive cardiac history as outlined below; admitted with atrial fibrillation with RVR.
-Patient has known LVEF of 35%; 14-second run of VT on telemetry.
-Will discontinue Cardizem drip (CHF).
-Will start amiodarone drip with bolus.
-Will resume Toprol-XL at a dose of 25 mg twice daily, given blood pressure and heart rate limitations (was on Toprol-XL 50 mg twice daily at home).
-Continue quality assurance monitor final.
-Will place on Lasix 40 mg IV once daily; admits to only partial Lasix compliance at home.
-Patient will be reevaluated by EP Cardiology on Tuesday.
Original Note:
Today's Communication / Plan
-
-IV Lasix
-stop Dilt drip, resume BB
-discuss AAD with
-echo and EP eval this admit
Impression / Plan
-
64 y/o male with hx MV repair then replacement, TV repair, PFO closure and MAZE 2020, AFIB, Aflutter, tachycardia, DVT's, IVC filter, iliac stenting, GIB, AFIB/flutter ablation 07/05/24 Dr. Jackson,then CV 09/07/24. He was recently in [facility] with [facility] and had tachycardia, and per report they wanted him to stay, but he didn't. He saw Dr. Wallace in the office yesterday and was sent here for further management of his AFIB. Full consult will be uploaded.
Atrial fibrillation:
-persistent
-rate controlled on IV diltiazem. Will stop this as patient with CM.
-resume metoprolol
-will discuss AAD, likely have EP see this admit
-continue Eliquis for OAC
NSVT:
-14 seconds- asymptomatic
-resume beta augustina
-give potassium, check mag
-update echo
Fphxy-iy-avhrztc HFrEF:
-EF 35% as noted
-based on CXR and assessment, he is volume overloaded
-he does not take his Lasix each day
-IV lasix, which requires intensive monitoring
Hx MV replacement, TV repair
Hx DVT,s, IVC filter
Hx GIB
Hx iliac stenting
Recent Cdiff
Physical Exam
Vital Signs/Labs
Vital Signs
Temp Pulse Resp BP Pulse Ox
98.3 F 62 18 107/70 96
09/22/24 07:48 09/22/24 08:00 09/22/24 07:48 09/22/24 07:41 09/22/24 07:48
09/21/24 09/22/24 09/23/24
06:59 06:59 06:59
Actual Weight 93.6 kg
09/22/24 04:19
09/22/24 04:19
Magnesium 2.1 mg/dl (1.6-2.3) 09/21/24 17:26
Triglycerides 53 mg/dl (10-149) 09/22/24 04:19
LDL Cholesterol, Calc 49 mg/dl 09/22/24 04:19
VLDL Cholesterol, Calc 10 mg/dl (0-30) 09/22/24 04:19
HDL Cholesterol 32 mg/dl 09/22/24 04:19
LAB Results
09/21/24
22:11
Troponin I < 0.012
Physical Exam
Constitutional: No acute distress
EENT: Anicteric
Cardiovascular: Rhythm/rate is irregular and Pedal edema present
Respiratory: Respiratory effort normal and Crackles Present (b/l bases)
Neuro/Psych: AO x 3
Other: Skin (warm and dry)
Data Reviewed
-
Date of Service: September 22, 2024
EKG: Tracing Personally Visualized and interpreted (atrial flutter at 134 BPM)
Echo: Report Reviewed by me (INNA 03/02/24: EF 35%. Normal RV size with mildly reduced RV systolic function. Severely dilated LA. Moderately dilated RA. Well-seated bioprosthetic MV present. Annuloplasty ring present in the tricuspid position. Mild
tricuspid regurgitation. Mildly dilated aortic root and proximal ascending aorta.)
X-Ray/CT/US/MRI/NUC/PET: Report Reviewed by me (CXR: CXR: Mild acute cardiogenic pulmonary edema.Moderate cardiomegaly. Previous mitral and tricuspid valve replacement. Mild scarring in both lower lungs. Mildly decreased bilateral lung volumes.)
Labs: Labs Reviewed by me
[2024-09-22 10:01] LABS: Magnesium 2.2 mg/dl (1.6-2.3)
[2024-09-22 10:10] LABS: NT-proBNP 3750 pg/ml
[2024-09-22] MEDS: TOPROL XL 25 MG PO (11:59)
[2024-09-22] MEDS: KCL 40 MEQ PO (11:59)
[2024-09-22] MEDS: LASIX 20 MG IV (12:00)
[2024-09-22] MEDS: CORDARONE 103 MG IV (12:01)
[2024-09-22] MEDS: CORDARONE 518 MG IV (12:38)
--- NOTE | 2024-09-22 15:28 | PTCARENOTE ---
Amio drip discontinued after pts HR noted to go into the 40s. drip running for approximately 0.5 hrs. MD Oliva made aware; asked for drip to be stopped. pt asymptomatic. remains on school lunch monitor. plan of care continues to be followed.
--- NOTE | 2024-09-22 17:20 | W.PN.HOSP.TC ---
Today's Communication/Plan
-
see plan below
Assessment / Plan
Assessment / Plan
Assessment:
Persistent Afib with RVR
- prior hx of INNA/CV 03/12 and ablation 07/12, CV 09/07/24
- s/p Cardizem and Amio drips - stopped due to bradycardia
- continue Metoprolol PO
- continue Eliquis
- EP CBC cards to follow on Tuesday for further options
Hx of C. Diff infection (from recent hospitalization [place])
- on PO Vanco through 09/24/24
Acute on Chronic HFrEF
- continue IV Lasix - requires intensive monitoring of I/Os, weights, lytes
- continue Entresto/BB
HX MVR 1997, and redo MVR plus bioprosthetic TVR, PFO and ASD closure, and MAZE 2020.
HX status post iliac stenting for PAD
Chronic venous insufficiency
Bilateral lower extremity DVT, 2008, likely secondary to prolonged immobility; retained IVC filter.
HX Probable obstructive sleep apnea.
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
Chronic low back pain. Sciatica; stabe
Osteoarthritis.
Iron deficiency anemia.
DVT ppx: Eliquis
Code: Full
Anticipated Discharge: > 48 hours
Subjective/Interval History
-
Date of Service: September 22, 2024
initially placed on Cardizem then switched to Amio, both now stopped due to bradycardia
denies any discomfort
Objective Data
-
Vital Signs:
Vital Signs
Temp Pulse Resp BP Pulse Ox
98.1 F 87 16 96/67 100
09/22/24 16:25 09/22/24 16:25 09/22/24 16:25 09/22/24 16:25 09/22/24 16:25
I&O
09/21/24 09/22/24 09/23/24
06:59 06:59 06:59
Intake Total 500 / 500 991.1 / 991.1
Output Total 680 / 680
Balance 500 / 500 311.1 / 311.1
Physical Exam
-
General: No Apparent Distress
HEENT: Normocephalic and Atraumatic
Respiratory: Clear to Auscultation; Negative Wheezes or Rales
Cardiac: Irregular Rhythm
GI: Soft and Nontender
Musculoskeletal: No Edema
Neuro: AO x 3
Psych: Calm
Data Reviewed
-
Total Time Spent with Patient (in minutes): 51
Labs: Labs Reviewed by me
[2024-09-22] MEDS: TOPROL XL 50 MG PO (20:34)
--- NOTE | 2024-09-23 02:26 | PTCARENOTE ---
Assumed care of the patient @ 1900 AAOx3 A fib on the monitor 100-120's compression stocking in use. Independent in the room. Call villagomez within reach.
[2024-09-23 02:36] VITALS: BP 93/68
[2024-09-23] MEDS: FIRVANQ 125 MG PO ×4 (05:00→23:47)
[2024-09-23 05:14] LABS: Hematocrit 36.2 % (39.0-52.0); Hemoglobin 11.7 g/dL (13.0-18.0); Mean Corp Hgb Conc. 32.3 g/dL (33.0-37.0); Mean Corpuscular Hgb 30.4 pg (27.0-31.0); Platelet Count 153 10^3/uL (130-400); Red Blood Cell Count 3.85 10^6/uL (4.70-6.10); Red Cell Dist. Width 13.7 % (11.5-14.5)
[2024-09-23 05:42] LABS: Blood Urea Nitrogen 15 mg/dl (9-20); Calcium 8.9 mg/dl (8.4-10.2); Carbon Dioxide 28 mmol/L (22-30); Chloride 103 mmol/L (98-107); Estimated Creatinine Clearance 107 ml/min; Glucose 87 mg/dl (70-99); Potassium 4.4 mmol/L (3.5-5.1); Sodium 137 mmol/L (135-145); eGFR > 60.00
[2024-09-23 07:14] VITALS: BP 124/75
[2024-09-23] MEDS: LASIX 20 MG IV (09:15)
[2024-09-23] MEDS: PROTONIX 40 MG PO (09:16)
[2024-09-23] MEDS: TOPROL XL 50 MG PO ×2 (09:16→20:36)
[2024-09-23] MEDS: VISBIOME 1 CAP PO (09:16)
--- NOTE | 2024-09-23 09:45 | W.PN.CD ---
Today's Communication / Plan
-
-A-fib with variable rate control; unable to tolerate amiodarone yesterday secondary to significant bradycardia.
-Continue Toprol-XL 50 mg twice daily; unable to increase as it will likely precipitate worsening bradycardia.
-EP Cardiology to reevaluate tomorrow to discuss options (repeat ablation, pacemaker/ICD).
-Echocardiogram ordered for tomorrow.
-Continue Lasix 20 mg IV daily.
Impression / Plan
-
64 y/o male with hx MV repair then replacement, TV repair, PFO closure and MAZE 2020, AFIB, Aflutter, tachycardia, DVT's, IVC filter, iliac stenting, GIB, AFIB/flutter ablation 07/05/24 Dr. Jackson,then CV 09/07/24. He was recently in [facility] with CD[facility] and had tachycardia, and per report they wanted him to stay, but he didn't. He saw Dr. Wallace in the office yesterday and was sent here for further management of his AFIB. Full consult will be uploaded.
Paroxysmal atrial fibrillation:
-A-fib with variable rate control; unable to tolerate amiodarone yesterday secondary to significant bradycardia.
-Continue Toprol-XL 50 mg twice daily; unable to increase as it will likely precipitate worsening bradycardia.
-EP Cardiology to reevaluate tomorrow to discuss options (repeat ablation, pacemaker/ICD).
-Continue Eliquis.
NSVT:
-14 seconds yesterday - asymptomatic
-Beta-augustina was resumed yesterday.
-Echocardiogram ordered for tomorrow.
Phwpb-os-gtyhdnd HFrEF (EF 35%):
-based on CXR and assessment, he is volume overloaded
-He admits to not taking his Lasix each day.
-Continue Lasix 20 mg IV daily.
Hx MV replacement, TV repair -echocardiogram tomorrow.
Hx DVT,s, IVC filter
Hx GIB
Hx iliac stenting
Recent Cdiff
Physical Exam
Vital Signs/Labs
Vital Signs
Temp Pulse Resp BP Pulse Ox
98.2 F 130 20 124/75 98
09/23/24 07:11 09/23/24 09:16 09/23/24 07:11 09/23/24 09:16 09/23/24 07:11
09/22/24 09/23/24 09/24/24
06:59 06:59 06:59
Actual Weight 93.6 kg
09/23/24 04:54
09/23/24 04:54
Magnesium 2.2 mg/dl (1.6-2.3) 09/22/24 04:19
Triglycerides 53 mg/dl (10-149) 09/22/24 04:19
LDL Cholesterol, Calc 49 mg/dl 09/22/24 04:19
VLDL Cholesterol, Calc 10 mg/dl (0-30) 09/22/24 04:19
HDL Cholesterol 32 mg/dl 09/22/24 04:19
09/22/24
04:19
Kdd-C-Zvjirxpakvi Pept 3750
LAB Results
09/21/24
22:11
Troponin I < 0.012
Physical Exam
Constitutional: No acute distress and Comfortable
EENT: Anicteric and Moist mucous membranes
Cardiovascular: Systolic murmur absent, Rhythm/rate is irregular, Pedal edema present (Trace) and S1S2 is normal
Respiratory: Respiratory effort normal and Lungs clear to auscul.
GI: Soft
Neuro/Psych: AO x 3
Other: Skin (Warm, dry)
Data Reviewed
-
Date of Service: September 23, 2024
EKG: Report Reviewed by me (Telemetry: A-fib)
Medical Tests (PFT, Pathology etc): Discussed with Nurse and Discussed with Patient
Labs: Labs Reviewed by me
--- NOTE | 2024-09-23 10:45 | W.PN.HOSP.TC ---
Today's Communication/Plan
-
continue Beta-augustina
continue IV Lasix
Echo Tuesday
Assessment / Plan
Assessment / Plan
Assessment:
Persistent Afib with RVR
- prior hx of INNA/CV 03/12 and ablation 07/12, CV 09/07/24
- s/p Cardizem and Amio drips - stopped due to bradycardia
- continue Metoprolol PO
- continue Eliquis
- EP CBC cards to follow on Tuesday for further options such as ablation or PPM
Hx of C. Diff infection (from recent hospitalization [place])
- on PO Vanco through 09/24/24
Acute on Chronic HFrEF
- continue IV Lasix - requires intensive monitoring of I/Os, weights, lytes
- continue Entresto/BB
- Echo Tuesday
HX MVR 1997, and redo MVR plus bioprosthetic TVR, PFO and ASD closure, and MAZE 2020.
HX status post iliac stenting for PAD
Chronic venous insufficiency
Bilateral lower extremity DVT, 2008, likely secondary to prolonged immobility; retained IVC filter.
HX Probable obstructive sleep apnea.
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
Chronic low back pain. Sciatica; stabe
Osteoarthritis.
Iron deficiency anemia.
DVT ppx: Eliquis
Code: Full
Anticipated Discharge: > 48 hours
Subjective/Interval History
-
Date of Service: September 23, 2024
denies any new complaints presently
remains in rapid Afib
Objective Data
-
Labs:
Laboratory Results
09/23/24
04:54
WBC 5.0
Hgb 11.7 L
Hct 36.2 L
Plt Count 153
Sodium 137
Potassium 4.4
Chloride 103
Carbon Dioxide 28
BUN 15
Creatinine 0.7
Glucose 87
Calcium 8.9
Vital Signs:
Vital Signs
Temp Pulse Resp BP Pulse Ox
98.2 F 130 20 124/75 98
09/23/24 07:11 09/23/24 09:16 09/23/24 07:11 09/23/24 09:16 09/23/24 07:11
I&O
09/22/24 09/23/24 09/24/24
06:59 06:59 06:59
Intake Total 500 / 500 1351.1 / 1351.1
Output Total 1160 / 1160
Balance 500 / 500 191.1 / 191.1
Physical Exam
-
General: No Apparent Distress
HEENT: Normocephalic and Atraumatic
Cardiac: Irregular Rhythm and Tachycardic
GI: Soft
Genito-urinary: No Costovertebral Tender
Neuro: AO x 3
Psych: Calm
Data Reviewed
-
Total Time Spent with Patient (in minutes): 51
Labs: Labs Reviewed by me
--- NOTE | 2024-09-23 11:06 | PTCARENOTE ---
received patient this am sitting in bed waiting for breakfast. monitor shows Afib, HR 97. lung carrera crackles throughout,on RA. patient has STACEY hose on bilaterally, his own, refuses me to take off STACEY hose to look at legs. patient remains on
Enhanced precautions. patient able to let his needs known.
[2024-09-23 11:41] VITALS: BP 90/75
[2024-09-23] MEDS: ELIQUIS 5 MG PO ×2 (12:10→23:47)
[2024-09-23] MEDS: ENTRESTO 24 MG/26 MG 1 TAB PO ×2 (12:11→23:47)
--- NOTE | 2024-09-23 13:39 | PTCARENOTE ---
patient had 17 beats of Vtach, asymptomatic, lying in bed watching TV.
[2024-09-23 16:01] VITALS: BP 99/65
[2024-09-23 16:24] VITALS: BMI 28.4
[2024-09-23 19:29] VITALS: BP 106/82
[2024-09-23] MEDS: XALATAN OPHTHALMIC SOLUTION 1 DROP BOTH EYES (20:37)
[2024-09-23 23:39] VITALS: BP 102/71
[2024-09-24] VITALS (9 sets, daily range): BP systolic 85–108; BP diastolic 69–78; BMI 28.2
--- NOTE | 2024-09-24 02:30 | PTCARENOTE ---
Assumed care of the pt @ 1900. Pt AAOx3 A fib 90-120 on the monitor VSS. Call villagomez within reach.
[2024-09-24] MEDS: FIRVANQ 125 MG PO ×3 (05:20→17:40)
[2024-09-24 05:55] LABS: Hemoglobin 12.4 g/dL (13.0-18.0); Mean Corp Hgb Conc. 32.6 g/dL (33.0-37.0); Mean Corpuscular Hgb 30.7 pg (27.0-31.0); Mean Corpuscular Volume 94.1 fL (80.0-94.0); Platelet Count 172 10^3/uL (130-400); Red Blood Cell Count 4.04 10^6/uL (4.70-6.10); Red Cell Dist. Width 13.7 % (11.5-14.5); White Blood Cell Count 5.9 10^3/uL (4.8-10.8)
[2024-09-24 06:15] LABS: Blood Urea Nitrogen 16 mg/dl (9-20); Carbon Dioxide 30 mmol/L (22-30); Chloride 101 mmol/L (98-107); Estimated Creatinine Clearance 94 ml/min; Glucose 86 mg/dl (70-99); Potassium 4.4 mmol/L (3.5-5.1); Sodium 137 mmol/L (135-145); eGFR > 60.00
[2024-09-24] MEDS: LASIX 20 MG IV (08:47)
[2024-09-24] MEDS: PROTONIX 40 MG PO (08:48)
[2024-09-24] MEDS: VISBIOME 1 CAP PO (08:48)
[2024-09-24] MEDS: TOPROL XL 50 MG PO (08:48)
--- NOTE | 2024-09-24 09:33 | W.PN.HOSP.TC ---
Today's Communication/Plan
-
continue IV Lasix
continue BB/Eliquis; plan for ablation Tuesday per Dr. Jackson
finish Vanco course today
Assessment / Plan
Assessment / Plan
Assessment:
Persistent Afib with RVR
- prior hx of INNA/CV 03/12 and ablation 07/12, CV 09/07/24
- s/p Cardizem and Amio drips - stopped due to bradycardia
- continue Metoprolol PO
- continue Eliquis
- d/w Dr. Jackson and reviewed failure of meds as outlined. Plan is for Ablation 09/25/24
Hx of C. Diff infection (from recent hospitalization [place])
- on PO Vanco through 09/24/24. No diarrhea. can DC precautions this evening.
Acute on Chronic HFrEF
- continue IV Lasix - requires intensive monitoring of I/Os, weights, lytes
- continue Entresto/BB
- Echo Tuesday
HX MVR 1997, and redo MVR plus bioprosthetic TVR, PFO and ASD closure, and MAZE 2020.
HX status post iliac stenting for PAD
Chronic venous insufficiency
Bilateral lower extremity DVT, 2008, likely secondary to prolonged immobility; retained IVC filter.
HX Probable obstructive sleep apnea.
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
Chronic low back pain. Sciatica; stabe
Osteoarthritis.
Iron deficiency anemia.
DVT ppx: Eliquis
Code: Full
Anticipated Discharge: > 48 hours
Subjective/Interval History
-
Date of Service: September 24, 2024
remains in variable rates of Afib
denies any symptoms
Objective Data
-
Labs:
Laboratory Results
09/24/24
05:33
WBC 5.9
Hgb 12.4 L
Hct 38.0 L
Plt Count 172
Sodium 137
Potassium 4.4
Chloride 101
Carbon Dioxide 30
BUN 16
Creatinine 0.8
Glucose 86
Calcium 9.0
Vital Signs:
Vital Signs
Temp Pulse Resp BP Pulse Ox
98.1 F 130 18 108/75 96
09/24/24 07:47 09/24/24 08:48 09/24/24 07:47 09/24/24 08:48 09/24/24 07:47
I&O
09/23/24 09/24/24 09/25/24
06:59 06:59 06:59
Intake Total 1351.1 / 1351.1 420 / 420
Output Total 1160 / 1160 1400 / 1400
Balance 191.1 / 191.1 -980 / -980
Physical Exam
-
General: No Apparent Distress
HEENT: Normocephalic and Atraumatic
Cardiac: Irregular Rhythm
GI: Soft and Nontender
Genito-urinary: No Costovertebral Tender
Neuro: AO x 3
Hematologic / Lymphatic: No Lymphadenopathy
Psych: Calm
Data Reviewed
-
Total Time Spent with Patient (in minutes): 45
Labs: Labs Reviewed by me
--- NOTE | 2024-09-24 09:52 | PTCARENOTE ---
received patient this am, Dr. Quinn in room discussing ablation for patient tomorrow morning. monitor shows Afib, VSS. patient has his own bilat. STACEY hose on, refused me to take them off. patient remains on Enhanced precautions for Cdiff. Echo
being done at bedside.
[2024-09-24] MEDS: ENTRESTO 24 MG/26 MG 1 TAB PO ×2 (12:23→23:42)
[2024-09-24] MEDS: ELIQUIS 5 MG PO ×2 (12:24→23:42)
--- NOTE | 2024-09-24 13:15 | W.PN.CD ---
Today's Communication / Plan
-
- ECHo today
- NPO after midnight
- AFL /VT ablation in AM
Impression / Plan
-
64 y/o male with hx MV repair then replacement, TV repair, PFO closure and MAZE 2020, AFIB, Aflutter, tachycardia, DVT's, IVC filter, iliac stenting, GIB, AFIB/flutter ablation 07/05/24 Dr. Jackson,then CV 09/07/24. He was recently in [facility] with CD[facility] and had tachycardia, and per report they wanted him to stay, but he didn't. He saw Dr. Wallace in the office yesterday and was sent here for further management of his AFIB. Full consult will be uploaded.
Paroxysmal atrial fibrillation:
-A-fib with variable rate control; unable to tolerate amiodarone yesterday secondary to significant bradycardia.
-Continue Toprol-XL 50 mg twice daily; unable to increase as it will likely precipitate worsening bradycardia.
-Atypical flutter that degenerates to AF and goes back to sinus with frequent cycle repeats.
-Continue Eliquis.
- Will plan for AFL ablation +/- PVC or VT ablation.
- NPO after midnight.
NSVT:
-14 seconds yesterday - asymptomatic
-Beta-augustina was resumed yesterday.
-Echocardiogram ordered for today
Inpzc-ha-wqbpiur HFrEF (EF 35%):
-based on CXR and assessment, he is volume overloaded
-He admits to not taking his Lasix each day.
-Continue Lasix 20 mg IV daily.
Hx MV replacement, TV repair -echocardiogram today.
Hx DVT,s, IVC filter
Hx GIB
Hx iliac stenting
Recent Cdiff
Physical Exam
Vital Signs/Labs
Vital Signs
Temp Pulse Resp BP Pulse Ox
97.4 F 114 16 100/78 96
09/24/24 12:23 09/24/24 12:23 09/24/24 12:23 09/24/24 12:23 09/24/24 12:23
09/23/24 09/24/24 09/25/24
06:59 06:59 06:59
Actual Weight 89.7 kg 89 kg
09/24/24 05:33
09/24/24 05:33
Magnesium 2.2 mg/dl (1.6-2.3) 09/22/24 04:19
Triglycerides 53 mg/dl (10-149) 09/22/24 04:19
LDL Cholesterol, Calc 49 mg/dl 09/22/24 04:19
VLDL Cholesterol, Calc 10 mg/dl (0-30) 09/22/24 04:19
HDL Cholesterol 32 mg/dl 09/22/24 04:19
09/22/24
04:19
Rtm-N-Mujqqbeline Pept 3750
LAB Results
09/21/24
22:11
Troponin I < 0.012
Physical Exam
Constitutional: No acute distress and Comfortable
EENT: Anicteric and Moist mucous membranes
Cardiovascular: Rhythm/rate is irregular, JVD present and Systolic murmur present
Respiratory: Respiratory effort normal, Crackles Absent and Rhonchi Absent
GI: Soft, Non tender and Normal bowel sounds
Neuro/Psych: Alert, Oriented and AO x 3
Data Reviewed
-
Date of Service: September 24, 2024
Medical Decision Making: Reviewed Test Results, Test Interpretation and Review of Case with other Provider
EKG: Tracing Personally Visualized and interpreted
Echo: Report Reviewed by me
Labs: Labs Reviewed by me
Old Records: Reviewed
--- NOTE | 2024-09-24 14:48 | CM ---
Chart reviewed. Patient is independent of ADLS, lives with his in a [address], 1 [address], 0 DME. Plan is for the patient to return home. CM to follow
--- NOTE | 2024-09-24 15:32 | PTCARENOTE ---
patient remains in HR 130's, TT Dr. Jackson,no further orders at this time. will be NPO after midnight.
[2024-09-24] MEDS: TOPROL XL 12.5 MG PO (21:29)
[2024-09-24] MEDS: TOPROL XL PO (21:30)
[2024-09-24] MEDS: XALATAN OPHTHALMIC SOLUTION 1 DROP BOTH EYES (23:42)
[2024-09-25] VITALS (21 sets, daily range): BP systolic 85–118; BP diastolic 52–85
--- NOTE | 2024-09-25 03:06 | PTCARENOTE ---
Assumed care of the patient @ 1900. AAOx3 A fib on the monitor. NPO since or for Ablation. Call villagomez within reach
--- NOTE | 2024-09-25 03:12 | PTCARENOTE ---
Pt BP @ 2029 85/69 no symptoms Ed PA from Cardiology notified 2099 repeat bp 97/74 Metoprolol 50 mg dose adjusted to 12.5 mg x1
[2024-09-25 04:15] LABS: Hematocrit 39.2 % (39.0-52.0); Hemoglobin 12.1 g/dL (13.0-18.0); Mean Corp Hgb Conc. 30.9 g/dL (33.0-37.0); Mean Corpuscular Hgb 29.7 pg (27.0-31.0); Mean Corpuscular Volume 96.3 fL (80.0-94.0); Mean Platelet Volume 8.9 fL (7.4-10.4); Platelet Count 174 10^3/uL (130-400); Red Blood Cell Count 4.07 10^6/uL (4.70-6.10); Red Cell Dist. Width 13.6 % (11.5-14.5); White Blood Cell Count 5.2 10^3/uL (4.8-10.8)
[2024-09-25 04:37] LABS: Blood Urea Nitrogen 17 mg/dl (9-20); Calcium 8.8 mg/dl (8.4-10.2); Carbon Dioxide 31 mmol/L (22-30); Chloride 99 mmol/L (98-107); Estimated Creatinine Clearance 83 ml/min; Glucose 94 mg/dl (70-99); Magnesium 2.2 mg/dl (1.6-2.3); Potassium 4.2 mmol/L (3.5-5.1); Sodium 138 mmol/L (135-145); eGFR > 60.00
--- NOTE | 2024-09-25 07:46 | W.PN.CD ---
Today's Communication / Plan
-
- AF +/- VT ablation
Impression / Plan
-
64 y/o male with hx MV repair then replacement, TV repair, PFO closure and MAZE 2020, AFIB, Aflutter, tachycardia, DVT's, IVC filter, iliac stenting, GIB, AFIB/flutter ablation 07/05/24 Dr. Jackson,then CV 09/07/24. He was recently in [place]
[facility] with CD[facility] and had tachycardia, and per report they wanted him to stay, but he didn't. He saw Dr. Wallace in the office yesterday and was sent here for further management of his AFIB. Full consult will be uploaded.
Paroxysmal atrial fibrillation:
-AF ablation on 07/05/24 PVI, PWI - Pulse select - Guanri with pulsed field.
-A-fib/flutter with variable rate control; unable to tolerate amiodarone secondary to significant bradycardia.
-Continue Toprol-XL 50 mg twice daily; unable to increase as it will likely precipitate worsening bradycardia.
-Atypical flutter that degenerates to AF and goes back to sinus with frequent cycle repeats.
-Continue Eliquis.
- Will plan for AFL ablation +/- PVC or VT ablation today
NSVT:
-14 seconds yesterday - asymptomatic
-NSVT vs aberrant conduction.
-Beta-augustina was resumed
-Echocardiogram 09/24/24 -LVEF 40%
Tzrsz-iz-porhvyy HFrEF (EF 35%):
-based on CXR and assessment, he is volume overloaded
-He admits to not taking his Lasix each day.
-Continue Lasix 20 mg IV daily.
Hx MV replacement, TV repair
-TTE 09/24/24 - trans mitral gradient is now 9 mmHg (was 5 on 03/02/24)
Hx DVT,s, IVC filter
Hx GIB
Hx iliac stenting
Recent Cdiff
Physical Exam
Vital Signs/Labs
Vital Signs
Temp Pulse Resp BP Pulse Ox
97.5 F 96 16 108/74 97
09/25/24 07:07 09/25/24 04:10 09/25/24 07:07 09/24/24 23:42 09/25/24 07:07
09/24/24 09/25/24 09/26/24
06:59 06:59 06:59
Actual Weight 89.7 kg 89 kg
09/25/24 03:43
09/25/24 03:43
Magnesium 2.2 mg/dl (1.6-2.3) 09/25/24 03:43
Triglycerides 53 mg/dl (10-149) 09/22/24 04:19
LDL Cholesterol, Calc 49 mg/dl 09/22/24 04:19
VLDL Cholesterol, Calc 10 mg/dl (0-30) 09/22/24 04:19
HDL Cholesterol 32 mg/dl 09/22/24 04:19
09/22/24
04:19
Ite-W-Xxofycjeqpp Pept 3750
Physical Exam
Constitutional: No acute distress and Comfortable
EENT: Anicteric and Moist mucous membranes
Cardiovascular: JVD pressure is normal, Rhythm/rate is irregular and Systolic murmur present
Respiratory: Respiratory effort normal, Wheeze Absent and Crackles Absent
GI: Soft, Non tender and Normal bowel sounds
Neuro/Psych: Alert, Oriented and AO x 3
Data Reviewed
-
Date of Service: September 25, 2024
Medical Decision Making: Reviewed Test Results, Independent Historian Assessment, Test Interpretation and Review of Case with other Provider
EKG: Tracing Personally Visualized and interpreted
Echo: Report Reviewed by me
Labs: Labs Reviewed by me
Old Records: Reviewed
[2024-09-25] MEDS: PROTONIX 40 MG PO (09:33)
[2024-09-25] MEDS: TOPROL XL 50 MG PO ×2 (09:33→21:06)
[2024-09-25] MEDS: VISBIOME 1 CAP PO (09:33)
[2024-09-25] MEDS: ELIQUIS PO (09:34)
--- NOTE | 2024-09-25 09:38 | PN.CDI ---
CDI
- -
CDI:
Physician Documentation Request
Admit Date: 09/21/24 23:16
Dear Doctor Jose,
Please review the following and provide your response in the progress notes.
Clinical Indicators:
- 09/24 PN 'Persistent Afib'
- 09/24 Cardiology 'Paroxysmal atrial fibrillation'
- per H&P hx cardioversion x 2 and ablation in 2023
- scheduled for ablation 09/25
In an attempt to clarify potentially conflicting documentation, please clarify the type of atrial fibrillation:
Paroxysmal atrial fibrillation - terminates spontaneously or with intervention within 7 days of onset
Persistent atrial fibrillation - episodes of continuous AF that last more than 7 days and do not self-terminate
Permanent atrial fibrillation - when a decision has been made to accept the presence of AF and there is no further attempt to restore or maintain sinus rhythm
Other - please specify
Use of terms such as suspected, likely, concern for, or probable (associated with a specific diagnosis that is being evaluated, monitored, or treated as if it exists) are acceptable and can be coded in the inpatient setting, when documented at the
time of discharge.
Thank you,
Yarelis Valdivia RN
CDI Specialist
Please use your independent medical judgment in providing your response.
--- NOTE | 2024-09-25 10:11 | W.PN.HOSP.TC ---
Today's Communication/Plan
-
NPO for Ablation today
AM doses of Eliquis, IV Lasix held
Assessment / Plan
Assessment / Plan
Echo: Dilated left ventricle with severe concentric left ventricular hypertrophy, inferoseptal/anteroseptal hypokinesis with moderately reduced left ventricular systolic function. LV ejection fraction is 40% by Hernandez's method of discs. Diastolic
function indeterminate but abnormal. Dilated right ventricular size with preserved normal right ventricular systolic function. Moderate left atrial dilation. Mild right atrial dilation. Well seated, normally functioning bioprosthetic mitral valve
replacement. Moderate aortic regurgitation. Dilated aortic root (SoV = 4.0 cm) and ascending aorta (Asc Ao = 4.8 cm).History of PFO closure.
Assessment:
Parox Afib with RVR
- prior hx of INNA/CV 03/12 and ablation 07/12, CV 09/07/24
- s/p Cardizem and Amio drips - both separately attempted, but both stopped due to bradycardia
- continue Metoprolol PO
- continue Eliquis
- d/w Dr. Jackson and reviewed failure of meds as outlined. Plan is for Ablation 09/25/24
Hx of C. Diff infection (from recent hospitalization [place])
- on PO Vanco through 09/24/24. No diarrhea.
- precautions per infection prevention required for 1 month
Acute on Chronic HFrEF
- continue IV Lasix - requires intensive monitoring of I/Os, weights, lytes
- continue Entresto/BB
- Echo from 09/24/24 summarized above
HX MVR 1997, and redo MVR plus bioprosthetic TVR, PFO and ASD closure, and MAZE 2020.
HX status post iliac stenting for PAD
Chronic venous insufficiency
Bilateral lower extremity DVT, 2008, likely secondary to prolonged immobility; retained IVC filter.
HX Probable obstructive sleep apnea.
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
Chronic low back pain. Sciatica; stable
Osteoarthritis.
Iron deficiency anemia
DVT ppx: Eliquis
Code: Full
Anticipated Discharge: > 48 hours
Subjective/Interval History
-
Date of Service: September 25, 2024
resting comfortably
HR 90s this AM
denies complaints
for Ablation today
Objective Data
-
Labs:
Laboratory Results
09/25/24
03:43
WBC 5.2
Hgb 12.1 L
Hct 39.2
Plt Count 174
Sodium 138
Potassium 4.2
Chloride 99
Carbon Dioxide 31 H
BUN 17
Creatinine 0.9
Glucose 94
Calcium 8.8
Vital Signs:
Vital Signs
Temp Pulse Resp BP Pulse Ox
97.5 F 98 16 118/74 97
09/25/24 07:07 09/25/24 10:00 09/25/24 07:07 09/25/24 08:22 09/25/24 07:07
I&O
09/24/24 09/25/24 09/26/24
06:59 06:59 06:59
Intake Total 420 / 420 480 / 480 0 / 0
Output Total 1400 / 1400 300 / 300 250 / 250
Balance -980 / -980 180 / 180 -250 / -250
Physical Exam
-
General: No Apparent Distress
HEENT: Normocephalic and Atraumatic
Respiratory: Clear to Auscultation; Negative Wheezes or Rales
Cardiac: Irregular Rhythm and Tachycardic
GI: Soft
Neuro: AO x 3
Psych: Calm
Data Reviewed
-
Total Time Spent with Patient (in minutes): 51
Labs: Labs Reviewed by me
--- NOTE | 2024-09-25 11:06 | CM ---
Chart reviewed. Patient is independent of ADLS, lives with his in a 2 [address], 1 JAISON, 0 DME. Patient waiting for an ablation. Plan is for the patient to return home. CM to follow
[2024-09-25] MEDS: ENTRESTO 24 MG/26 MG 1 TAB PO ×2 (12:37→23:13)
[2024-09-25 15:48] LABS: ACT-LR - POC 342 Seconds (116-155)
[2024-09-25 16:09] LABS: ACT-LR - POC 303 Seconds (116-155)
[2024-09-25 16:37] LABS: ACT-LR - POC 327 Seconds (116-155)
--- NOTE | 2024-09-25 16:56 | ITS.CL.ABL ---
Bereavement Program Coordinator - Ablation
Ablation
Procedure Report:
AFIB ablation:
Mr. Mckenna is a very pleasant 64 yr old gentleman with symptomatic persistent AF s/p AF ablation 06/2024 with PVI, and PWI (Pulse-select - EVIAGENICStronic), with hx of mitral valve replacement with bio prosthetic device who had developed atrial flutter
and recurrent atrial fibrillation is recommended a redo AF ablation.
Date of the Procedure:
09/25/2024
Indications:
Persistent with recurrent atrial fibrillation
Pre-Operative Diagnosis:
Persistent with recurrent atrial fibrillation
Post-Operative Diagnosis:
Persistent with recurrent atrial fibrillation
Procedure Performed:
Atrial flutter ablation with roof line block
Atrial fibrillation ablation with Pulsed-Field approach for Posterior wall isolation
Mitral isthmus ablation for mitral flutter
Performing Physician:
Divine Jackson MD
Assistants:
EP staff
Anesthesia:
See anesthesia records
Detailed Description of the Procedure:
Written informed consent was obtained from the patient after a full explanation of the risks and benefits of the procedure including the risks of sedation and anesthesia.
The patient was brought to the electrophysiology laboratory in stable condition in fasting state. Continuous electrocardiographic and hemodynamic monitoring was initiated.
The initial rhythm was atrial flutter.
The procedure site was meticulously prepared with surgical scrub and allowed to dry with no pooling. Sterile draping was applied to cover the procedure site. The image intensifier was draped with sterile bag and positioned over the patient. After
infusion of local anesthetic, vascular access was obtained under ultrasound guidance and sheaths were placed over guide wire as detailed below. �
The vascular ultrasound images were recorded for the access.
Sheath and Catheter Placement:
The following catheters / sheaths were placed
Sheaths:
��������� 17Fr steerable sheath (Faradrive�, Quintic) in right femoral
��������� 9Fr in right femoral vein
��������� 7Fr in right femoral vein
Catheters:
��������� EARNEST HD Grid mapping catheter � at locations of RA, LA
��������� Farawave� PFA catheter
��������� ICE catheter -AcuNav - at locations of RA, SVC, and RV.
��������� Decapolar Bard catheter in RA and CS
Intracardiac ECHO:
An 8-Mexican AcuNav intracardiac ECHO (ICE) probe was advanced through the 9-Mexican sheath in the right femoral vein into the right atrium under fluoroscopic and ICE ultrasound image guidance and a baseline ECHO study was performed. The left atrial
size was dilated. There was moderate tricuspid regurgitation. The aortic valve was grossly normal. There was normal left ventricular systolic functions. There is no pericardial effusion. All the four veins were identified and has flow identified.
During the procedure, ICE was used for monitoring of complications, guidance of trans-septal puncture, monitor the catheter position and tracking ablation lesions. No change in the pericardial space noted throughout the procedure.
Trans-septal Puncture:
Heparin was initiated and infused to maintain appropriate ACT. A J-tipped guidewire was advanced through the 8-Mexican sheath in the right femoral vein into the superior vena cava under fluoroscopic and ICE guidance. The 9-Mexican sheath was exchanged
for a Faradrive sheath which was advanced into the superior vena cava. A trans-septal RF pigtail via Faradrive connect system was utilized to perform the trans-septal puncture. The apparatus was withdrawn until it was in contact with the fossa
ovalis. The position was adjusted based on fluoroscopy and ultrasound images from ICE. Under fluoroscopic, hemodynamic and ICE ultrasound guidance, left atrium was cannulated by applying RF energy. Once atrial septum was cannulated, the pigtail wire
was advanced through the needle into the left atrium. The guide wire was advanced into the left superior pulmonary vein. Both the sheath and the dilator was advanced into the left atrium. The dilator with the needle was withdrawn. Blood was
aspirated from the Faradrive sheath and arterial blood confirmed. The sheath was flushed. Saline injection noted into the left atrium on ICE. The mapping catheter was advanced in the sheath into the left pulmonary vein. Left atrial pressure was
measured.
3D Electroanatomic Mapping:
Using the HD Grid catheter advanced through sheath into the left atrium, an electroanatomic map (EAM) of the left atrium was created using [employer] EARNEST mapping system. The map was used for localization of catheter position and tacking of ablation
lesions.
The EAM of the left atrium showed 4 pulmonary veins with all 4 veins electrically isolated from the body the LA.
The flutter was initally mapped in the right atrium and it showed earliest escaping from LA. The entrainment from lateral RA, proximal CS and distal CS was obtained.
The EAM of the LA showed a small conduction from the roof.
The CS activation changed from concentric to eccentric indicative of mitral as well. The LA was mapped but went back to concentric before it can be mapped.
The LA was dilated in size.
Following the EAM, preparation were made for ablation.
Ablation:
Ablation # 1: Roof dependent Flutter ablation:
Glycopyrrolate 0.2 mg was given prior to the placement of ablation. Using Couplewise pulsed wave ablation system, that ablation catheter was placed at the roof and the ablation was able to dissipate the flutter into sinus rhythm.
Further ablations were placed on the roof to create a definite block at the roof.
Ablation # 2: Posterior wall isolation:
Using the pulsed field ablation catheter, the catheter was placed on the posterior wall and moved around the posterior wall to have adequate contact and ablations were placed isolating the posterior wall.
Ablation # 3: Mitral isthmus ablation:
The ablation catheter was placed on the laterl mitral isthmus and series if ablations were placed from the LIPV antrum to the bioprosthetic mitral valve. There were no signals remained on the lateral isthmus. The distal CS was paced and the LA was
mapped. There was a block at the mitral isthmus but the JOSE had an early signal indicative of epicardial conduction.
The CS pacing with aggressive maneuvers were done that generated the atrial fibrillation and no flutter was inducible.
Cardioversion:
Once the PV isolation was achieved, decision was made to proceed with cardioversion. A 200 J biphasic shock was applied on the cecile posterior Zoll patches and sinus rhythm was achieved. No significant pause noted.
Post ablation Electroanatomic mapping:
Once ablation was completed, the EAM of the LA was done again in sinus rhythm with excellent demarcation of LA myocardium and isolated antral tissue. There was dissociated signals were noted in the veins as well.
The JOSE had healthy signals and was not isolated.
EPS and Confirmation of the PVI and bidirectional block:
Following achievement of entrance block at the pulmonary veins, pacing from the HD catheter in each of the four veins at 10 milliamps for 2 milliseconds showed entrance and exit block. All PVI were rechecked at the end of the case and remained
isolated with dissociated and local capture with pacing. Entrance and exit block were demonstrated in all veins.
Procedure End
ICE study was done again that showed no epicardial accumulation. No complications noted.
Following the completion of the EP study, catheters were removed. Protamine 30 mg was given at the end of the procedure and ACT was checked repeatedly. The sheaths were removed and hemostasis achieved with Figure of 8 suture and manual compression
after acceptable ACT is achieved.
Left atrial Pressure:
Post-Procedure: Mean LA pressure was 27mmHg
Post-Procedure: Mean LR pressure was 9mmHg
Estimated Blood loss:
<10 cc
Specimens Removed:
None.
Implants / Devices:
None
Urine output:
None
Packs / Drains/ Tubes:
None
Instrument / Sponge Count Correct:
Yes
Complications of the Procedure:
None
Condition of Patient at Time of Transfer:
Hemodynamically stable with no neurological or vascular compromise.
Summary:
Successful atrial fibrillation ablation with Pulsed Field approach for posterior wall isolation, left atrial roof flutter ablation, and mitral isthmus ablation.
Figures from the Procedure:
Figure 1: The electroanatomic mapping (EAM) of the left atrium with bipolar voltage (purple indicates normal electrical activity with dukes as no myocardial muscle electric activity indicating a line of block or scar.
Pre
Post
Pre and post
Roof flutter:
[2024-09-25] MEDS: LASIX IV (17:29)
[2024-09-25] MEDS: TYLENOL 650 MG PO (18:06)
--- NOTE | 2024-09-25 18:20 | PTCARENOTE ---
Assumed care of patient from labor union business representative. Right groin CDI. BP 94/55. 3L NC 97%. Patient A&Ox4. Call light in reach.
[2024-09-25] MEDS: DILAUDID 0.25 MG IV ×2 (21:48→23:14)
[2024-09-25] MEDS: XALATAN OPHTHALMIC SOLUTION 1 DROP BOTH EYES (22:22)
--- NOTE | 2024-09-25 22:36 | W.PN.UPDATE ---
Update Note
Progress Note Update
Cardiology Update Note:
-Called by Nursing staff to assess a bleeding right groin following removal of figure of 8 suture
-Nursing had been applying pressure prior to my arrival, site noted to be significantly oozing, without hematoma or ecchymosis on my arrival
-Additional 20 mins of manual pressure was applied by me before achieving hemostasis. Hemostatic pad, pressure dressing, as well as sandbag were then applied
-Will apply sandbag for at least 2hrs. Pt advised to remain supine in bed x 6hrs
-Dr. Gillespie made aware and okay with holding midnight dose of Eliquis
-Will cont. to closely monitor, will f/u AM h/h
[2024-09-26] VITALS (12 sets, daily range): BP systolic 100–135; BP diastolic 64–89; BMI 27.1
[2024-09-26] MEDS: LIDOCAINE 4% PATCH 1 PATCH TOPICAL (01:24)
[2024-09-26] MEDS: REGLAN 10 MG IV (02:03)
--- NOTE | 2024-09-26 03:26 | PTCARENOTE ---
Pt NSR on monitor. Figure of 8 removed per order. Manual pressure applied for moderate bleeding for 55min. CVPA at bedside. Innoseal and 20 lb sand bag applied. Pt instructed to remain on bedrest until 6am. Dsg clean and intact, no more bleeding
noted, groin soft, positive pulses. Dilaudid given for severe back pain due to long bedrest. PM dose of Eliquis held per DR. Gillespie
[2024-09-26 04:48] LABS: Hematocrit 42.9 % (39.0-52.0); Hemoglobin 13.9 g/dL (13.0-18.0); Mean Corp Hgb Conc. 32.4 g/dL (33.0-37.0); Mean Corpuscular Hgb 30.1 pg (27.0-31.0); Mean Corpuscular Volume 92.9 fL (80.0-94.0); Platelet Count 203 10^3/uL (130-400); Red Blood Cell Count 4.62 10^6/uL (4.70-6.10); Red Cell Dist. Width 13.9 % (11.5-14.5); White Blood Cell Count 9.4 10^3/uL (4.8-10.8)
[2024-09-26 05:07] LABS: Blood Urea Nitrogen 24 mg/dl (9-20); Calcium 9.1 mg/dl (8.4-10.2); Carbon Dioxide 23 mmol/L (22-30); Chloride 101 mmol/L (98-107); Estimated Creatinine Clearance 83 ml/min; Glucose 130 mg/dl (70-99); Potassium 5.1 mmol/L (3.5-5.1); Sodium 135 mmol/L (135-145); eGFR > 60.00
--- NOTE | 2024-09-26 08:24 | W.PN.HOSP.TC ---
Today's Communication/Plan
-
Discharge today
Assessment / Plan
Assessment / Plan
Physical Exam
General: No Apparent Distress
HEENT: Normocephalic and Atraumatic
Respiratory: Clear to Auscultation Bilaterally.
Cardiac: S1 and S2. Regular rhythm.
GI: Soft
Neuro: AO x 3
Psych: Calm
Assessment/Plan
Echo: Dilated left ventricle with severe concentric left ventricular hypertrophy, inferoseptal/anteroseptal hypokinesis with moderately reduced left ventricular systolic function. LV ejection fraction is 40% by Hernandez's method of discs. Diastolic
function indeterminate but abnormal. Dilated right ventricular size with preserved normal right ventricular systolic function. Moderate left atrial dilation. Mild right atrial dilation. Well seated, normally functioning bioprosthetic mitral valve
replacement. Moderate aortic regurgitation. Dilated aortic root (SoV = 4.0 cm) and ascending aorta (Asc Ao = 4.8 cm).History of PFO closure.
Parox Afib with RVR, treated with ablation
- prior hx of INNA/CV 03/12 and ablation 07/12, CV 09/07/24
- s/p Cardizem and Amio drips - both separately attempted, but both stopped due to bradycardia
- continue Toprol-XL 50 mg twice daily
- continue Eliquis
- d/w Dr. Jackson and reviewed failure of meds as outlined. Plan is for Ablation 09/25/24
NSVT
Hx of C. Diff infection (from recent hospitalization [place])
- on PO Vanco through 09/24/24. No diarrhea.
- precautions per infection prevention required for 1 month
Acute on Chronic HFrEF
- continue diuretic
- continue Entresto/BB
- Echo from 09/24/24 summarized above
HX MVR 1997, and redo MVR plus bioprosthetic TVR, PFO and ASD closure, and MAZE 2020.
HX status post iliac stenting for PAD
Chronic venous insufficiency
Bilateral lower extremity DVT, 2008, likely secondary to prolonged immobility; retained IVC filter.
HX Probable obstructive sleep apnea.
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
Chronic low back pain. Sciatica; stable
Osteoarthritis.
Iron deficiency anemia
DVT ppx: Eliquis
Code: Full
More than 30 minutes spent in discharge including
Final examination of the patient
Summarizing hospital stay
Instructions for continuing care to all relevant caregivers
Preparation of discharge records, prescriptions, and referral forms
Total time spent (in minutes): 39
Anticipated Discharge: Today
Subjective/Interval History
-
Date of Service: September 26, 2024
Patient was seen and examined. He denied any chest pain or shortness of breath.
Objective Data
-
Labs:
Laboratory Results
09/26/24
04:31
WBC 9.4
Hgb 13.9
Hct 42.9
Plt Count 203
Sodium 135
Potassium 5.1
Chloride 101
Carbon Dioxide 23
BUN 24 H
Creatinine 0.9
Glucose 130 H
Calcium 9.1
Vital Signs:
Vital Signs
Temp Pulse Resp BP Pulse Ox
99.7 F 89 20 124/82 100
09/26/24 07:47 09/26/24 05:00 09/26/24 07:47 09/26/24 05:00 09/26/24 07:47
I&O
09/25/24 09/26/24 09/27/24
06:59 06:59 06:59
Intake Total 480 / 480 1520 / 1520
Output Total 300 / 300 450 / 450
Balance 180 / 180 1070 / 1070
[2024-09-26] MEDS: TOPROL XL 50 MG PO (09:18)
[2024-09-26] MEDS: PROTONIX 40 MG PO (09:18)
[2024-09-26] MEDS: LASIX 20 MG IV (09:19)
[2024-09-26] MEDS: VISBIOME 1 CAP PO (09:19)
--- NOTE | 2024-09-26 09:30 | W.PN.CD ---
Today's Communication / Plan
-
Now s/p ablation
Continue metoprolol and apixaban
OK to return to work tomorrow September 27, with limited ambulation.
We will sign off; f/u appt has been made
Impression / Plan
-
64 y/o male with hx MV repair then replacement, TV repair, PFO closure and MAZE 2020, AFIB, Aflutter, tachycardia, DVT's, IVC filter, iliac stenting, GIB, AFIB/flutter ablation 07/05/24 Dr. Jackson,then CV 09/07/24. He was recently in [facility] with [facility] and had tachycardia, and per report they wanted him to stay, but he didn't. He saw Dr. Wallace in the office yesterday and was sent here for further management of his AFIB. Full consult will be uploaded.
Paroxysmal atrial fibrillation:
-AF ablation on 07/05/24 PVI, PWI - Pulse select - LiveSchooltronic with pulsed field.
-A-fib/flutter with variable rate control s/p ABLATION; unable to tolerate amiodarone secondary to significant bradycardia.
-Continue Toprol-XL 50 mg twice daily; unable to increase as it will likely precipitate worsening bradycardia.
-Continue Eliquis.
- Will plan for AFL ablation +/- PVC or VT ablation today
NSVT:
-14 seconds yesterday - asymptomatic
-NSVT vs aberrant conduction.
-Beta-augustina was resumed
-Echocardiogram 09/24/24 -LVEF 40%
Zvicv-lq-fiddowa HFrEF (EF 35%):
-based on CXR and assessment, he is volume overloaded
-He admits to not taking his Lasix each day.
-Continue Lasix 20 mg IV daily.
Hx MV replacement, TV repair
-TTE 09/24/24 - trans mitral gradient is now 9 mmHg (was 5 on 03/02/24)
Hx DVT,s, IVC filter
Hx GIB
Hx iliac stenting
Recent Cdiff
Physical Exam
Vital Signs/Labs
Vital Signs
Temp Pulse Resp BP Pulse Ox
99.7 F 68 20 101/67 100
09/26/24 07:47 09/26/24 09:18 09/26/24 07:47 09/26/24 09:18 09/26/24 07:47
09/25/24 09/26/24 09/27/24
06:59 06:59 06:59
Actual Weight 196 lb 3.382 oz
09/26/24 04:31
09/26/24 04:31
Magnesium 2.2 mg/dl (1.6-2.3) 09/25/24 03:43
Triglycerides 53 mg/dl (10-149) 09/22/24 04:19
LDL Cholesterol, Calc 49 mg/dl 09/22/24 04:19
VLDL Cholesterol, Calc 10 mg/dl (0-30) 09/22/24 04:19
HDL Cholesterol 32 mg/dl 09/22/24 04:19
09/22/24
04:19
Thg-D-Jcvrxjvizya Pept 3750
Physical Exam
Constitutional: No acute distress and Comfortable
EENT: Anicteric
Cardiovascular: Rhythm & rate is regular, Pedal edema is absent and Pedal edema present
Respiratory: Respiratory effort normal and Lungs clear to auscul.
GI: Soft
Neuro/Psych: AO x 3
Data Reviewed
-
Date of Service: September 26, 2024
EKG: Tracing Personally Visualized and interpreted (sr)
Echo: Report Reviewed by me
Labs: Labs Reviewed by me
[2024-09-26] MEDS: ENTRESTO 24 MG/26 MG 1 TAB PO (13:08)
[2024-09-26] MEDS: ELIQUIS 5 MG PO (13:08)
--- NOTE | 2024-09-26 17:31 | PTCARENOTE ---
Discussed all nursing measures prior to implementation.
--- NOTE | 2024-09-26 17:32 | PTCARENOTE ---
CHF diagnosis discussed as pt asking for alot of fluids. Heart failure education booklet given to patient. Will monitor.
--- NOTE | 2024-09-26 19:25 | PTCARENOTE ---
Reviewed d/c w/ patient. Pt verbalized understanding. Pt's right groin site w/ elastaplast tape intact. Pt verbalized understanding of post cath instructions. Pt drove himself to hospital and is driving home himself. Pt discharged at 1925 via
wheelchair and associate.
== END 2024-09-26 19:25 | disposition home or self-care (01) | DRG 273 ==
LOC: IVU 23:16
PROVIDERS: Clinical Nurse Specialist Family Health; Internal Medicine; Internal Medicine Cardiovascular Disease; Physician Assistant; Registered Nurse; ADMITTING PHYSICIAN Internal Medicine; ATTENDING PHYSICIAN Hospitalist; EMERGENCY PHYSICIAN Emergency Medicine; OTHER PHYSICIAN Internal Medicine Cardiovascular Disease
PROC: 4A023FZ Measurement of Cardiac Rhythm, Percutaneous Approach (ICD-10-PCS; 2024-09-25)
PROC: 02K83ZZ Map Conduction Mechanism, Percutaneous Approach (ICD-10-PCS; 2024-09-25)
PROC: B24BZZ4 Ultrasonography of Heart with Aorta, Transesophageal (ICD-10-PCS; 2024-09-25)
PROC: 4A0234Z Measurement of Cardiac Electrical Activity, Percutaneous Approach (ICD-10-PCS; 2024-09-25)
PROC: 02583ZF Destruction of Conduction Mechanism using Irreversible Electroporation, Percutaneous Approach (ICD-10-PCS; 2024-09-25)
DX: I48.0 Paroxysmal atrial fibrillation (principal); I50.23 Acute on chronic systolic (congestive) heart failure; I11.0 Hypertensive heart disease with heart failure; I73.9 Peripheral vascular disease, unspecified; I48.92 Unspecified atrial flutter; I83.90 Asymptomatic varicose veins of unspecified lower extremity; K76.0 Fatty (change of) liver, not elsewhere classified; G89.29 Other chronic pain; E66.9 Obesity, unspecified; I47.20 Ventricular tachycardia, unspecified; I87.2 Venous insufficiency (chronic) (peripheral); D50.9 Iron deficiency anemia, unspecified; M19.90 Unspecified osteoarthritis, unspecified site; Z68.27 Body mass index [BMI] 27.0-27.9, adult; Z79.01 Long term (current) use of anticoagulants; Z79.899 Other long term (current) drug therapy; Z86.718 Personal history of other venous thrombosis and embolism; Z87.74 Personal history of (corrected) congenital malformations of heart and circulatory system; Z95.3 Presence of xenogenic heart valve; Z95.820 Peripheral vascular angioplasty status with implants and grafts
CPT/HCPCS: 71046; 80048; 80053; 80061; 83735; 83880; 84484; 85025; 85027; 85347; 86850; 86900; 86901; 93005; 93306; 93655; 93656; 93657; 96374; 99285; C1730; C1732; C1733; C1759; C1766; C1892; C1894

== ENCOUNTER 2025-02-19 06:17 | Day surgery (SDC) | payer MEDICARE, SELFPAY | END 2025-02-19 14:42 | disposition home or self-care (01) | LOC: GI 06:17 | PROVIDERS: ATTENDING PHYSICIAN Specialist | DX: Z12.11 Encounter for screening for malignant neoplasm of colon (principal); D12.8 Benign neoplasm of rectum | CPT/HCPCS: 45385; 88305 ==

== ENCOUNTER → 2025-07-31 10:21 | Outpatient (REF) | payer MEDICARE, SELFPAY ==
[2025-07-31 11:20] LABS: Hematocrit 40.5 % (39.0-52.0); Hemoglobin 12.7 g/dL (13.0-18.0); Mean Corp Hgb Conc. 31.4 g/dL (33.0-37.0); Mean Corpuscular Volume 94.6 fL (80.0-94.0); Nucleated Red Blood Cells % 0 % (-); Platelet Count 156 10^3/uL (130-400); Red Cell Dist. Width 13.8 % (11.5-14.5)
[2025-07-31 11:24] LABS: INR 1.08; PT 14.5 Sec (11.4-14.6)
[2025-07-31 11:38] LABS: ALT (SGPT) 14 U/L (0-50); AST (SGOT) 19 U/L (17-59); Albumin 4.4 g/dl (3.5-5.0); Alkaline Phosphatase 52 U/L (38-126); Blood Urea Nitrogen 17 mg/dl (9-20); Calcium 9.7 mg/dl (8.4-10.2); Carbon Dioxide 31 mmol/L (22-30); Chloride 103 mmol/L (98-107); Glucose 72 mg/dl (70-99); Potassium 5.1 mmol/L (3.5-5.1); Sodium 137 mmol/L (135-145); Total Protein 6.6 g/dl (6.3-8.2); eGFR > 60.00
== END ==
LOC: SDSPAT 10:21
PROVIDERS: ATTENDING PHYSICIAN Internal Medicine Cardiovascular Disease; FAMILY PHYSICIAN Internal Medicine; OTHER PHYSICIAN Internal Medicine Cardiovascular Disease
DX: I48.0 Paroxysmal atrial fibrillation (principal)
CPT/HCPCS: 36415; 80053; 85025; 85610; 86850; 86900; 86901; 93005

== ENCOUNTER 2025-08-06 06:17 | Inpatient (IN) | payer MEDICARE, SELFPAY ==
[2025-08-06] VITALS (13 sets, daily range): BP systolic 91–115; BP diastolic 53–72
--- NOTE | 2025-08-06 08:53 | WATCHMAN.MD ---
Watchman Implant
-
Watchman JOSE occlusion device implantation:
Mr. Mckenna is a 65 yrs old woman with h/o recurrent bleeds and advised to stop anticoagulation therapy is here for Watchman implantation.
Date of Procedure:
08/06/25
Indications:
Recurrent bleedings with anticoagulation therapy for stroke prevention
Pre-Operative Diagnosis:
Atrial fibrillation with recurrent bleeding
Post-Operative Diagnosis:
Atrial fibrillation with recurrent bleeding
Procedure Performed:
Left atrial appendage occlusion with Watchman implantation (35 mm Watchman FLX Pro left atrial appendage closure device)
Performing Physicians:
INNA: Josh Ozuna M.D.
Transseptal concaving machine operator: Osbaldo Osborn MD
Implanter: Divine Jackson MD.
Anesthesia:
See anesthesia records
Detailed Description of the Procedure:
Written informed consent was obtained from the patient after a full explanation of the risks and benefits of the procedure including the risks of sedation and anesthesia.
The patient was brought to the electrophysiology laboratory in stable condition in fasting state. Continuous electrocardiographic and hemodynamic monitoring was initiated.
The initial rhythm was atrial fibrillation.
The procedure site was meticulously prepared with surgical scrub and allowed to dry with no pooling. Sterile draping was applied to cover the procedure site. The image intensifier was draped with sterile bag and positioned over the patient. After
infusion of local anesthetic, vascular access was obtained under ultrasound guidance and sheaths were placed over guide wire as detailed below.
Sheath and Catheter Placement:
In the right femoral vein, an 8-Lao sheath was placed for Watchman placement procedure.
Sheaths:
Watchman delivery sheath upgraded from 8Fr sheath.
Catheters:
Watchman catheter
Trans-septal Puncture:
Heparin was initiated and infused to maintain appropriate ACT.
A VersaCross RF pigtail guidewire was advanced through the 8-Lao sheath in the right femoral vein into the superior vena cava under fluoroscopic, INNA guidance. The 8Fr was upgraded the Watchman sheath and was advanced into the superior vena cava
over the guide wire. A transseptal VersaCross RF pigtail via Faradrive connect system was utilized to perform the trans-septal puncture. The apparatus was withdrawn until it was in contact with the fossa ovalis. The position was adjusted based on
fluoroscopy and ultrasound images from INNA. Under fluoroscopic, hemodynamic and INNA ultrasound guidance, left atrium was cannulated by applying the radiofrequency energy. The right atrial and left atrial pressure was monitored. A guide wire was
placed and was advanced into the left superior pulmonary vein. Both the sheath and the dilator was advanced into the left atrium. The dilator was withdrawn. Blood was aspirated from the sheath and arterial blood confirmed. The sheath was flushed.
Saline injection noted into the left atrium on INNA. The LA pressure was recorded. The saline injection was noted in the LA on the INNA. A curved pig tail was advanced over the guide wire into the left atrium and the wire was removed.
DCCV:
Given the onset of atrial fibrillation, patient underwent DCCV with 200J shock that converted patient to sinus rhythm.
Left atrial appendage atriography:
The pigtail was advanced into the JOSE and was confirmed on fluoroscopy and INNA. The contrast was injected and the JOSE shape was recorded in MIXON /Caudal view (19/19 degrees). The size of the JOSE was again checked and confirmed reviewing the INNA and
the fluoroscopy along with previously obtained INNA images.
Watchman Deployment:
The Watchman delivery sheath was advanced into the JOSE over the pigtail till the right marker was at the location of the orifice line marked on the screen. The pigtail was removed and the Watchman delivery system was advanced through the sheath into
the JOSE till it was aligned with the outer sheath marker inside the JOSE. The watchman sheath was clicked with the outer sheath. Once acceptable location achieved, the outer sheath was pulled back keeping the device steady at the JOSE location till a
ball of the device was formed under fluoroscopic guidance. The whole system was advanced further into the JOSE till adequate depth is achieved into the JOSE. The JOSE occluder was deployed and expanded adequately anchoring to the JOSE. The device was
kept anchored with stable pressure to that location for 10 seconds.
The watchman needed to be recaptured and adjusted and was redeployed till the adequate expansion and occlusion of the JOSE noted.
The INNA image confirmed adequate expansion. The tug test was done that showed the device is anchored well and is not able to come out. The compression was 15% and 12% on the three sides. There was no significant leak noted on the Doppler via INNA.
The device was deployed by unscrewing the Watchman device and releasing from the connecting wire. The wire was pulled back into the sheath and the sheath was pulled out of the LA.
Implanted device:
WATCHMAN FLX Pro � 35mm
Procedure End
INNA study was done again that showed no epicardial accumulation that was unchanged from earlier. A repeated images showed no change in the pericardial space. No complications noted.
Following the completion of the deployment, catheters were removed. Protamine 40 mg was given at the end of the procedure and ACT was checked repeatedly. The sheath was removed and hemostasis achieved with Fig of 8 suture and manual compression
after acceptable ACT is achieved.
Left atrial Pressure:
Mean LA pressure was 21mmHg
Estimated Blood loss:
10 cc
Specimens Removed:
None.
Implants / Devices:
None
Urine output:
None
Packs / Drains/ Tubes:
None
Instrument / Sponge Count Correct:
Yes
Complications of the Procedure:
None
Condition of Patient at Time of Transfer:
Hemodynamically stable with no neurological or vascular compromise.
Summary:
Successful implantation of the left atrial occlusion device (WATCHMAN FLX Pro� 35mm)
Post procedure Plan for anticoagulation:
Continue Eliquis 5 mg BID for 3 months.
In 3 months, based on INNA, will plan to discontinue Eliquis and start ASA 81 mg indefinitely.
--- NOTE | 2025-08-06 09:16 | ITS.CL.PN ---
Ict Help Desk Technician - Procedure Note
Procedure
Procedure Note:
WATCHMAN LEFT ATRIAL APPENDAGE OCCLUSION REPORT
Date of Procedure: 08/06/2025
Referring: Dr. Carmelo Shepherd MD
Indication: atrial fibrillation with high bleeding risk and high stroke risk
Operators: Osbaldo Osborn MD, PhD (interventional cardiology); Dr. Divine Jackson MD (electrophysiology); Dr. Laci Mcadams MD, PhD (cardiac imaging)
Anesthesia: general anesthesia provided by the anesthesia staff
PROCEDURE: left atrial appendage occlusion with a 31 mm Watchman FLX
ACCESS:
1. 14F right common femoral vein (closure: figure of eight stitch) - Ultrasound was utilized for vascular access. The vessel was visualized under ultrasound and noted to be patent. An image of the vessel was stored permanently in the patient's
medical record. Under direct ultrasound guidance, vascular access was obtained using a modified Seldinger technique and a 8 [place] sheath was placed.
HEMODYNAMIC DATA
LA 21 mmHg
PROCEDURE NARRATIVE:
The patient was intubated and sedated by anesthesiology and then prepped and draped in standard sterile fashion. A INNA probe was placed by cardiology and imaging performed demonstrating no left atrial appendage thrombus and no pericardial effusion.
Under ultrasound guidance, the right femoral vein was accessed by Dr. Osborn with an 8F sheath placed. Heparin was administered to achieve ACT>300.
The 8F sheath was exchanged over a Storyz RF wire for the Watchman double curve sheath which was advanced to the SVC. The Watchman sheath was then pulled back under fluoroscopic and echo guidance until an appropriate inferior and posterior position
on the septum was achieved. During brief RF application, the wire was advanced through the interatrial septum into the left atrium. The wire was placed in the left upper pulmonary vein as confirmed by fluoroscopy and INNA. The dilator and sheath
easily tracked across the septum allowing placement of the sheath in the left atrium. Left atrial pressure was measured at 21 mmHg.
A 5F pigtail catheter was advanced through the sheath and placed in the left atrial appendage, and an appendage gram was performed demonstrating anatomy suitable for a 31 mm Watchman FLX device. The device was prepped on the back table, the pigtail
catheter removed, and the device delivered via the sheath to the left atrial appendage by Dr. Jackson. The device was deployed slowly under continuous fluoroscopic and INNA visualization. After deployment, INNA imaging was performed to assess PASS
criteria. The device demonstrated excellent positioning, anchor stability on tug test, appropriate sizing with 12-15% compression, and appropriate seal with no leak at 0, 45, 90, or 135 degrees. Given PASS criteria were met, the device was then
released.
The delivery system retracted back into the sheath and removed from the body. The sheath was retracted into the right atrium with INNA demonstrating no significant R-L shunt or pericardial effusion. The sheath was removed and the venotomy closed with
[id number] knot. Protamine 40 mg was given. The patient was extubated and tolerated the procedure well.
CONCLUSIONS
1. transseptal puncture with INNA guidance
2. successful deployment of a 31 mm Watchman FLX device under fluoroscopic and INNA guidance
RECOMMENDATIONS:
1. anticoagulation with Eliquis 5 mg BID for 3 months
2. repeat INNA in 3 months
Copy to: Dr. Shawn Raya MD (event promotions coordinator); Dr. Carmelo Shepherd MD (PCP)
Signed: Osbaldo sOborn MD, PhD
[2025-08-06 10:36] LABS: ACT-LR - POC > 397 Seconds (116-155)
--- NOTE | 2025-08-06 15:53 | W.DS.TRANS ---
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
-
Discharge Instructions:
Discharge Diagnosis/Procedures AFib, s/p Watchman device implant
Diet Low Cholesterol,Low Sodium
Driving Restrictions No driving for 24 hours
Others Tests A follow up INNA has been scheduled for you at
[facility] on 11/06/2025.
You will receive a call from Dr. Jackson's
office with additional instructions.
Instructions:
Stand-Alone Forms: DC Instructions- Cath/EP Lab
Changes to Home Medications: No
Discharge Medications:
DC Medications w/original date entered in [employer]
ascorbic acid (vitamin C) 500 mg tablet (Vitamin C) 500 mg PO DAILY Supplement 07/05/24
cabergoline 0.5 mg tablet 0.5 mg PO MOTH 07/05/24
latanoprost 0.005 % eye drops 1 drp BOTH EYES HS Eye Condition 07/05/24
Lactobac no.2-Bifidobac no.1-S. thermo 112.5 billion cell capsule (Visbiome) 1 cap PO DAILY 09/22/24
apixaban 5 mg tablet (Eliquis) 5 mg PO BID 09/22/24
pantoprazole 40 mg tablet,delayed release (Protonix) 40 mg PO DAILY 09/22/24
zinc sulfate 50 mg zinc (220 mg) tablet 50 mg PO DAILY 09/22/24
Magnesium Vit B6, B12 2 dose PO DAILY 07/29/25
Probiotic 1 dose PO DAILY 07/29/25
carvedilol 3.125 mg tablet 3.125 mg PO BID 07/29/25
cholecalciferol (vitamin D3) 50 mcg (2,000 unit) tablet (Vitamin D3) 50 mcg PO DAILY 07/29/25
dapagliflozin propanediol 10 mg tablet (Farxiga) 10 mg PO DAILY 07/29/25
eplerenone 25 mg tablet 25 mg PO DAILY 07/29/25
furosemide 20 mg tablet 20 mg PO DAILY PRN edema, SOB 07/29/25
magnesium 500 mg tablet 500 mg PO HS 07/29/25
niacin 500 mg tablet 500 mg PO BID 07/29/25
penicillin V potassium 500 mg tablet 500 mg PO BID 07/29/25
sacubitril 49 mg-valsartan 51 mg tablet (Entresto) 1 tab PO BID 07/29/25
Home Medication Changes
Pending Results: No
== END 2025-08-06 16:40 | disposition home or self-care (01) | DRG 274 ==
LOC: CATH-IN 06:17
PROVIDERS: Internal Medicine Cardiovascular Disease; Student in an Organized Health Care Education/Training Program; ADMITTING PHYSICIAN Internal Medicine Cardiovascular Disease; FAMILY PHYSICIAN Internal Medicine
PROC: 02L73DK Occlusion of Left Atrial Appendage with Intraluminal Device, Percutaneous Approach (ICD-10-PCS; 2025-08-06)
PROC: B24BZZ4 Ultrasonography of Heart with Aorta, Transesophageal (ICD-10-PCS; 2025-08-06)
DX: I48.92 Unspecified atrial flutter (principal); I50.22 Chronic systolic (congestive) heart failure; Z79.01 Long term (current) use of anticoagulants; I48.91 Unspecified atrial fibrillation; I47.20 Ventricular tachycardia, unspecified; I42.8 Other cardiomyopathies; I11.0 Hypertensive heart disease with heart failure; D35.2 Benign neoplasm of pituitary gland; D64.9 Anemia, unspecified; Z68.30 Body mass index [BMI] 30.0-30.9, adult; E66.9 Obesity, unspecified; Z00.6 Encounter for examination for normal comparison and control in clinical research program
CPT/HCPCS: 33340; 85347; 93005; 93355; C1769; C1894